=== PATIENT | female | born 1940 | race Caucasian/White ===

== ENCOUNTER 2017-12-19 04:06 | Inpatient (IN) ==
[2017-12-19] MEDS ORDERED: ASPIRIN 325 MG TABLET PO STA (04:20)
[2017-12-19] MEDS ORDERED: MORPHINE 2 MG/1 ML SYRINGE IV STA (04:20)
[2017-12-19] MEDS ORDERED: ONDANSETRON 4 MG/2 ML VIAL IV STA (04:20)
[2017-12-19] MEDS ORDERED: NITROGLYCERIN 2% OINT 1 INCH/GM PACK TOP STA (04:20)
[2017-12-19] MEDS ORDERED: hydrALAZINE 20 MG/1 ML VIAL IV STA (04:21)
[2017-12-19] MEDS ORDERED: ONDANSETRON 4 MG/2 ML VIAL ONE ×3 (04:29→06:36)
[2017-12-19] MEDS ORDERED: NITROGLYCERIN 2% OINT 1 INCH/GM PACK TOP ONE (04:29)
[2017-12-19] MEDS ORDERED: hydrALAZINE 20 MG/1 ML VIAL ONE (04:29)
[2017-12-19] MEDS ORDERED: MORPHINE 10 MG/1 ML VIAL ONE (04:30)
[2017-12-19] MEDS ORDERED: ASPIRIN 325 MG TABLET ONE (04:30)
[2017-12-19] MEDS ORDERED: NITROGLYCERIN DRIP 50 MG/250 ML BOTTLE IV ONE (04:47)
[2017-12-19] MEDS ORDERED: TICAGRELOR 90 MG TABLET ONE (04:50)
[2017-12-19] MEDS ORDERED: HEPARIN 5,000 UNIT/1 ML VIAL ONE (04:51)
[2017-12-19] MEDS ORDERED: TICAGRELOR 90 MG TABLET PO STA (04:52)
[2017-12-19] MEDS ORDERED: NITROGLYCERIN DRIP 50 MG/250 ML BOTTLE IV SCH (04:52)
[2017-12-19] MEDS ORDERED: HEPARIN 5,000 UNIT/1 ML VIAL IV STA (04:53)
[2017-12-19 04:54] LABS: Basophils # 0.1 10*3/uL (0.0-0.2); Basophils % 0.4 % (0.0-0.8); Eosinophils # 0.7 10*3/uL (0.0-0.87); Eosinophils % 5.3 % (0.00-10.9); Hematocrit 44.2 VOL% (35.7-47.0); Hemoglobin 14.1 GM/DL (12.0-16.0); Immature Granulocytes % 0.5 %; Immature Granulocytes Absolute 0.07 #; Lymphocytes # 4.9 10*3/uL (1.4-4.0); Mean Corpuscular HGB Conc 31.9 GM/DL (32-36); Mean Corpuscular Hemoglobin 29 PG (27-34); Mean Corpuscular Volume 91.5 FL (87-102); Monocytes # 0.9 10*3/uL (0.11-0.8); Monocytes % 6.7 % (1.7-12.7); Neutrophils % 51.1 % (38.7-73.9); Platelet Count 231 T/CUMM (130-400); Red Blood Count 4.83 MC/CUMM (3.8-5.5); Red Cell Distribution Width 12.8 % (9.3-17.3); White Blood Count 13.7 T/CUMM (4-12)
[2017-12-19 04:56] LABS: Osmolality,Calculated 281.5 MOS/KG (273-304); Potassium 3.1 MMOL/L (3.5-5.1)
[2017-12-19] MEDS ORDERED: NITROGLYCERIN SL 0.4 MG TABLET SL PRN (06:56)
[2017-12-19] MEDS ORDERED: SODIUM CHLORIDE 0.9% 1,000 ML IV SCH (07:00)
[2017-12-19] MEDS: LOSARTAN 50 MG TABLET PO SCH ×2 (08:13→20:27)
[2017-12-19] MEDS: ASPIRIN EC 81 MG TABLET PO SCH (08:13)
[2017-12-19] MEDS: TICAGRELOR 90 MG TABLET PO SCH ×2 (08:13→20:27)
[2017-12-19] MEDS: MORPHINE 2 MG/1 ML SYRINGE IV PRN ×2 (08:14→12:19)
[2017-12-19] MEDS: ROSUVASTATIN 20 MG TABLET PO SCH (08:14)
[2017-12-19] MEDS: PANTOPRAZOLE 40 MG TABLET PO SCH (08:16)
[2017-12-19] MEDS ORDERED: CARVEDILOL 3.125 MG TABLET PO SCH (09:00)
[2017-12-19 09:18] LABS: CKMB % 11.2 %
[2017-12-19 09:20] LABS: Troponin I Only 4.94 NG/ML (0.00-0.045)
[2017-12-19] MEDS: ONDANSETRON 4 MG/2 ML VIAL IV PRN ×3 (09:41→20:26)
[2017-12-19] MEDS ORDERED: BIVALIRUDIN IV ONE (09:48)
[2017-12-19] MEDS ORDERED: HYDROmorphone 2 MG/1 ML VIAL IV ONE (09:48)
[2017-12-19] MEDS ORDERED: TICAGRELOR 90 MG TABLET PO ONE (09:48)
[2017-12-19] MEDS ORDERED: MIDAZOLAM 2 MG/2 ML VIAL IV ONE (09:48)
[2017-12-19] MEDS: hydrALAZINE 20 MG/1 ML VIAL IV PRN ×2 (14:09→23:19)
[2017-12-19] MEDS: SODIUM CHLORIDE 0.9% 1,000 ML IV SCH ×2 (15:14→23:19)
[2017-12-19 15:46] LABS: CKMB % 14.4 %
[2017-12-19 15:49] LABS: Troponin I Only 34.8 NG/ML (0.00-0.045)
[2017-12-19] MEDS ORDERED: ACETAMINOPHEN 325 MG TABLET PO PRN (16:50)
[2017-12-19] MEDS ORDERED: LABETALOL 20 MG/4 ML SYRINGE IV ONE (17:00)
[2017-12-19] MEDS: ZALEPLON 5 MG CAPSULE PO PRN (20:27)
[2017-12-19] MEDS: CARVEDILOL 6.25 MG TABLET PO SCH (20:27)
[2017-12-19] MEDS: PROMETHAZINE INJ 25 MG in SODIUM CHLORIDE 0.9% 50 ML IV PRN (21:16)
[2017-12-20 01:00] LABS: CKMB % 11.9 %
[2017-12-20] MEDS: PROMETHAZINE INJ 25 MG in SODIUM CHLORIDE 0.9% 50 ML IV PRN (03:49)
[2017-12-20 05:06] LABS: Basophils % 0.2 % (0.0-0.8); Eosinophils % 0.1 % (0.00-10.9); Hematocrit 37.3 VOL% (35.7-47.0); Hemoglobin 12.4 GM/DL (12.0-16.0); Immature Granulocytes % 0.6 %; Lymphocytes # 1.9 10*3/uL (1.4-4.0); Lymphocytes % 11.8 % (21.3-54.2); Mean Corpuscular HGB Conc 33.2 GM/DL (32-36); Mean Corpuscular Hemoglobin 30 PG (27-34); Mean Corpuscular Volume 90.3 FL (87-102); Mean Platelet Volume 12.2 FL (9.6-12.0); Monocytes # 1.3 10*3/uL (0.11-0.8); Monocytes % 7.9 % (1.7-12.7); Neutrophils # 12.9 10*3/uL (1.4-7.4); Neutrophils % 79.4 % (38.7-73.9); Platelet Count 191 T/CUMM (130-400); Red Blood Count 4.13 MC/CUMM (3.8-5.5); Red Cell Distribution Width 13.1 % (9.3-17.3); White Blood Count 16.3 T/CUMM (4-12)
[2017-12-20 05:36] LABS: Calcium 8.6 MG/DL (8.5-10.1); Osmolality,Calculated 275.5 MOS/KG (273-304); Risk Ratio 3.84; VLDL CHOLESTEROL 21.6 MG/DL
[2017-12-20] MEDS ORDERED: POTASSIUM CHLORIDE RIDER 10 MEQ in PREMIX 1 EACH IV PRN (08:22)
[2017-12-20] MEDS ORDERED: MAGNESIUM SULF RIDER 2 GM in PREMIX 1 EACH IV PRN (08:22)
[2017-12-20] MEDS ORDERED: HEPARIN/NACL 0.9% 2 UNITS/ML 2,000 ML IV ONE (08:23)
[2017-12-20] MEDS ORDERED: LIDOCAINE 1% 20 ML VIAL ONE (08:23)
[2017-12-20] MEDS ORDERED: MIDAZOLAM 2 MG/2 ML VIAL ONE (08:24)
[2017-12-20] MEDS ORDERED: HYDROmorphone 2 MG/1 ML VIAL ONE (08:30)
[2017-12-20] MEDS ORDERED: BIVALIRUDIN 250 MG VIAL IV ONE (08:59)
[2017-12-20] MEDS ORDERED: LABETALOL 20 MG/4 ML SYRINGE IV ONE (09:10)
[2017-12-20] MEDS ORDERED: TICAGRELOR 90 MG TABLET ONE (09:21)
[2017-12-20] MEDS: TICAGRELOR 90 MG TABLET PO SCH ×2 (10:15→20:09)
[2017-12-20] MEDS ORDERED: SIMETHICONE CHEW 80 MG TABLET PO PRN (10:18)
[2017-12-20] MEDS ORDERED: MAGNESIUM HYDROXIDE SUSP 30 ML UDCUP PO PRN (10:19)
[2017-12-20] MEDS: ONDANSETRON 4 MG/2 ML VIAL IV PRN (11:25)
[2017-12-20] MEDS: SODIUM CHLORIDE 0.9% 1,000 ML IV SCH ×3 (11:26→23:03)
[2017-12-20] MEDS: CARVEDILOL 6.25 MG TABLET PO SCH ×2 (11:30→20:09)
[2017-12-20] MEDS: ASPIRIN EC 81 MG TABLET PO SCH (11:30)
[2017-12-20] MEDS: LOSARTAN 50 MG TABLET PO SCH ×2 (11:30→20:09)
[2017-12-20] MEDS: PANTOPRAZOLE 40 MG TABLET PO SCH (11:31)
[2017-12-20] MEDS ORDERED: guaiFENesin/DM ER 600-30 MG TABLET PO PRN (13:17)
[2017-12-20] MEDS: ROSUVASTATIN 20 MG TABLET PO SCH ×2 (18:55→20:09)
[2017-12-21] MEDS: hydrALAZINE 20 MG/1 ML VIAL IV PRN (00:07)
[2017-12-21] MEDS: MORPHINE 2 MG/1 ML SYRINGE IV PRN (00:52)
[2017-12-21 09:12] LABS: Calcium 8.4 MG/DL (8.5-10.1); Osmolality,Calculated 273.7 MOS/KG (273-304)
[2017-12-21] MEDS: SODIUM CHLORIDE 0.9% 1,000 ML IV SCH (09:30)
[2017-12-21] MEDS: TICAGRELOR 90 MG TABLET PO SCH ×2 (09:46→20:30)
[2017-12-21] MEDS: PANTOPRAZOLE 40 MG TABLET PO SCH (09:46)
[2017-12-21] MEDS: LOSARTAN 50 MG TABLET PO SCH ×2 (09:46→20:30)
[2017-12-21] MEDS: ASPIRIN EC 81 MG TABLET PO SCH (09:46)
[2017-12-21] MEDS: CARVEDILOL 12.5 MG TABLET PO SCH ×2 (09:46→20:30)
[2017-12-21 10:15] LABS: Basophils % 0.2 % (0.0-0.8); Eosinophils % 0.1 % (0.00-10.9); Hematocrit 35.4 VOL% (35.7-47.0); Hemoglobin 11.3 GM/DL (12.0-16.0); Immature Granulocytes % 0.5 %; Immature Granulocytes Absolute 0.09 #; Lymphocytes # 2.2 10*3/uL (1.4-4.0); Lymphocytes % 12.3 % (21.3-54.2); Mean Corpuscular HGB Conc 31.9 GM/DL (32-36); Mean Corpuscular Hemoglobin 30 PG (27-34); Mean Corpuscular Volume 92.4 FL (87-102); Mean Platelet Volume 11.6 FL (9.6-12.0); Monocytes # 2.1 10*3/uL (0.11-0.8); Monocytes % 11.6 % (1.7-12.7); Neutrophils # 13.3 10*3/uL (1.4-7.4); Neutrophils % 75.3 % (38.7-73.9); Platelet Count 158 T/CUMM (130-400); Red Blood Count 3.83 MC/CUMM (3.8-5.5); Red Cell Distribution Width 13.2 % (9.3-17.3); White Blood Count 17.7 T/CUMM (4-12)
[2017-12-21] MEDS: ENOXAPARIN 40 MG/0.4 ML SYRINGE SUBCUT SCH (11:15)
[2017-12-21] MEDS: ISOSORBIDE MONONITRATE 30 MG TABLET PO SCH (14:38)
[2017-12-21] MEDS ORDERED: FUROSEMIDE 20 MG/2 ML VIAL IV ONE (16:02)
[2017-12-21] MEDS: AMITRIPTYLINE 25 MG TABLET PO SCH (20:30)
[2017-12-21] MEDS: ZALEPLON 5 MG CAPSULE PO PRN (20:30)
[2017-12-21] MEDS: ROSUVASTATIN 20 MG TABLET PO SCH (20:30)
[2017-12-22] MEDS ORDERED: DILTIAZEM 50 MG/10 ML VIAL IV ONE ×2 (01:16→01:30)
[2017-12-22] MEDS ORDERED: DILTIAZEM 100 MG VIAL.ADD IV ONE (01:17)
[2017-12-22] MEDS ORDERED: SODIUM CHLORIDE 0.9% 100 ML IV ONE (01:17)
[2017-12-22] MEDS ORDERED: DILTIAZEM INJ 100 MG in SODIUM CHLORIDE 0.9% 100 ML IV SCH (01:30)
[2017-12-22 04:58] LABS: Basophils % 0.1 % (0.0-0.8); Eosinophils # 0.1 10*3/uL (0.0-0.87); Eosinophils % 0.5 % (0.00-10.9); Hematocrit 32.3 VOL% (35.7-47.0); Hemoglobin 10.3 GM/DL (12.0-16.0); Immature Granulocytes % 0.7 %; Lymphocytes # 2.1 10*3/uL (1.4-4.0); Lymphocytes % 15.4 % (21.3-54.2); Mean Corpuscular HGB Conc 31.9 GM/DL (32-36); Mean Corpuscular Hemoglobin 29 PG (27-34); Mean Corpuscular Volume 91.2 FL (87-102); Mean Platelet Volume 12.1 FL (9.6-12.0); Monocytes # 1.5 10*3/uL (0.11-0.8); Monocytes % 10.8 % (1.7-12.7); Neutrophils # 9.9 10*3/uL (1.4-7.4); Neutrophils % 72.5 % (38.7-73.9); Platelet Count 164 T/CUMM (130-400); Red Blood Count 3.54 MC/CUMM (3.8-5.5); Red Cell Distribution Width 13.2 % (9.3-17.3); White Blood Count 13.6 T/CUMM (4-12)
[2017-12-22 05:23] LABS: Calcium 8.3 MG/DL (8.5-10.1); Osmolality,Calculated 278.5 MOS/KG (273-304); Potassium 3.5 MMOL/L (3.5-5.1)
[2017-12-22 05:36] LABS: Hypochromasia 1+; Microcytosis Slight; Platelet Estimate Adequate
[2017-12-22] MEDS: ASPIRIN EC 81 MG TABLET PO SCH (09:42)
[2017-12-22] MEDS: ENOXAPARIN 40 MG/0.4 ML SYRINGE SUBCUT SCH (09:42)
[2017-12-22] MEDS: CARVEDILOL 12.5 MG TABLET PO SCH (09:42)
[2017-12-22] MEDS: PANTOPRAZOLE 40 MG TABLET PO SCH (09:42)
[2017-12-22] MEDS: ISOSORBIDE MONONITRATE 30 MG TABLET PO SCH (09:42)
[2017-12-22] MEDS: TICAGRELOR 90 MG TABLET PO SCH ×2 (09:42→21:50)
[2017-12-22] MEDS: LOSARTAN 50 MG TABLET PO SCH (09:57)
[2017-12-22] MEDS ORDERED: DIGOXIN 0.5 MG/2 ML AMP IV ONE (10:53)
[2017-12-22] MEDS ORDERED: FUROSEMIDE 40 MG/4 ML VIAL IV ONE (10:58)
[2017-12-22] MEDS: AMIODARONE 200 MG TABLET PO SCH ×2 (12:25→21:50)
[2017-12-22] MEDS: LEVALBUTEROL 0.63 MG/3 ML NEB RESP TX SCH ×2 (13:34→19:29)
[2017-12-22 14:00] LABS: Apearance,Urine Slightly Hazy (Clear); Bacteria,Urine Many /HPF (Few); Bilirubin,Urine Negative (Negative); Blood, Urine Negative (Negative); Glucose,Urine (UA) Negative (Negative); Ketones,Urine 5 mg/dL (Negative); Mucus,Urine Occasional /LPF (Occasional); Nitrite,Urine Negative (Negative); Protein,Urine Negative; RBC,Urine 1 /HPF (0-4); Squamous Epithelial Cell,Urine Occasional /HPF (0-10); Urine Color Yellow (Yellow); Urine Specific Gravity 1.015 (1.001-1.035); WBC,Urine 23 /HPF (0-6)
[2017-12-22] MEDS: LEVOFLOXACIN INJ 500 MG in PREMIX 1 EACH IV SCH (16:31)
[2017-12-22] MEDS: MORPHINE 2 MG/1 ML SYRINGE IV PRN (16:32)
[2017-12-22] MEDS: cefTRIAXone 1,000 MG in SYRINGE 1 EACH IV SCH (18:40)
[2017-12-22] MEDS ORDERED: LOSARTAN 25 MG TABLET PO SCH (21:00)
[2017-12-22] MEDS: AMITRIPTYLINE 25 MG TABLET PO SCH (21:50)
[2017-12-22] MEDS: CARVEDILOL 25 MG TABLET PO SCH (21:50)
[2017-12-22] MEDS: ROSUVASTATIN 20 MG TABLET PO SCH (21:51)
[2017-12-22] MEDS: APIXABAN 5 MG TABLET PO SCH (21:52)
[2017-12-23] MEDS: LEVALBUTEROL 0.63 MG/3 ML NEB RESP TX SCH ×4 (02:14→20:23)
[2017-12-23 06:15] LABS: Basophils % 0.3 % (0.0-0.8); Eosinophils # 0.4 10*3/uL (0.0-0.87); Eosinophils % 4.5 % (0.00-10.9); Hematocrit 28.9 VOL% (35.7-47.0); Hemoglobin 9.4 GM/DL (12.0-16.0); Immature Granulocytes % 0.4 %; Immature Granulocytes Absolute 0.04 #; Lymphocytes # 1.9 10*3/uL (1.4-4.0); Lymphocytes % 19.1 % (21.3-54.2); Mean Corpuscular HGB Conc 32.5 GM/DL (32-36); Mean Corpuscular Hemoglobin 29 PG (27-34); Mean Platelet Volume 11.8 FL (9.6-12.0); Monocytes % 10.7 % (1.7-12.7); Neutrophils # 6.3 10*3/uL (1.4-7.4); Platelet Count 152 T/CUMM (130-400); Red Blood Count 3.21 MC/CUMM (3.8-5.5); Red Cell Distribution Width 13.1 % (9.3-17.3); White Blood Count 9.8 T/CUMM (4-12)
[2017-12-23 06:47] LABS: Band Neutrophils 1 % (0-10); Eosinophils 4 % (0-10); Giant Platelets Few; Hypochromasia 1+; Lymphocytes 17 % (20-55); Microcytosis Slight; Ovalocytes Slight; Platelet Estimate Normal; Segmented Neutrophils 68 % (50-85); Total Cells Counted 100
[2017-12-23 07:05] LABS: Calcium 8.2 MG/DL (8.5-10.1); Osmolality,Calculated 284.3 MOS/KG (273-304); Potassium 3.2 MMOL/L (3.5-5.1)
[2017-12-23] MEDS: POTASSIUM CHLORIDE 20 MEQ TABLET PO PRN ×3 (09:01→15:14)
[2017-12-23] MEDS: FUROSEMIDE 40 MG/4 ML VIAL IV SCH (09:01)
[2017-12-23] MEDS: LOSARTAN 25 MG TABLET PO SCH (09:01)
[2017-12-23] MEDS: APIXABAN 5 MG TABLET PO SCH ×2 (09:01→22:21)
[2017-12-23] MEDS: ASPIRIN EC 81 MG TABLET PO SCH (09:02)
[2017-12-23] MEDS: AMIODARONE 200 MG TABLET PO SCH ×2 (09:02→22:22)
[2017-12-23] MEDS: ISOSORBIDE MONONITRATE 30 MG TABLET PO SCH (09:02)
[2017-12-23] MEDS: PANTOPRAZOLE 40 MG TABLET PO SCH (09:02)
[2017-12-23] MEDS: TICAGRELOR 90 MG TABLET PO SCH ×2 (09:02→22:21)
[2017-12-23] MEDS: CARVEDILOL 25 MG TABLET PO SCH ×2 (09:02→22:21)
[2017-12-23] MEDS: LEVOFLOXACIN INJ 500 MG in PREMIX 1 EACH IV SCH (15:33)
[2017-12-23] MEDS: cefTRIAXone 1,000 MG in SYRINGE 1 EACH IV SCH (18:45)
[2017-12-23] MEDS: AMITRIPTYLINE 25 MG TABLET PO SCH (22:21)
[2017-12-23] MEDS: ROSUVASTATIN 20 MG TABLET PO SCH (22:21)
[2017-12-24] MEDS: LEVALBUTEROL 0.63 MG/3 ML NEB RESP TX SCH ×4 (01:30→18:58)
[2017-12-24 05:15] LABS: Basophils % 0.2 % (0.0-0.8); Eosinophils # 0.6 10*3/uL (0.0-0.87); Eosinophils % 6.2 % (0.00-10.9); Hematocrit 29.7 VOL% (35.7-47.0); Hemoglobin 9.6 GM/DL (12.0-16.0); Immature Granulocytes % 0.6 %; Immature Granulocytes Absolute 0.06 #; Lymphocytes # 2.1 10*3/uL (1.4-4.0); Mean Corpuscular HGB Conc 32.3 GM/DL (32-36); Mean Corpuscular Hemoglobin 29 PG (27-34); Mean Corpuscular Volume 90.5 FL (87-102); Mean Platelet Volume 11.9 FL (9.6-12.0); Monocytes # 1.2 10*3/uL (0.11-0.8); Monocytes % 12.2 % (1.7-12.7); Neutrophils % 59.8 % (38.7-73.9); Platelet Count 171 T/CUMM (130-400); Red Blood Count 3.28 MC/CUMM (3.8-5.5); Red Cell Distribution Width 13.2 % (9.3-17.3)
[2017-12-24 05:49] LABS: Calcium 8.3 MG/DL (8.5-10.1); Osmolality,Calculated 285.1 MOS/KG (273-304); Potassium 4.1 MMOL/L (3.5-5.1)
[2017-12-24] MEDS: ISOSORBIDE MONONITRATE 30 MG TABLET PO SCH (09:37)
[2017-12-24] MEDS: LOSARTAN 25 MG TABLET PO SCH (09:37)
[2017-12-24] MEDS: CARVEDILOL 25 MG TABLET PO SCH ×2 (09:37→21:12)
[2017-12-24] MEDS: APIXABAN 5 MG TABLET PO SCH ×2 (09:38→21:12)
[2017-12-24] MEDS: TICAGRELOR 90 MG TABLET PO SCH ×2 (09:38→21:11)
[2017-12-24] MEDS: PANTOPRAZOLE 40 MG TABLET PO SCH (09:38)
[2017-12-24] MEDS: ASPIRIN EC 81 MG TABLET PO SCH (09:38)
[2017-12-24] MEDS: AMIODARONE 200 MG TABLET PO SCH ×2 (09:41→21:11)
[2017-12-24] MEDS: FUROSEMIDE 40 MG/4 ML VIAL IV SCH (09:46)
[2017-12-24] MEDS: METOPROLOL TARTRATE 5 MG/5 ML VIAL IV SCH ×3 (12:44→15:45)
[2017-12-24] MEDS: LEVOFLOXACIN INJ 500 MG in PREMIX 1 EACH IV SCH (16:21)
[2017-12-24] MEDS: cefTRIAXone 1,000 MG in SYRINGE 1 EACH IV SCH (18:43)
[2017-12-24] MEDS: ROSUVASTATIN 20 MG TABLET PO SCH (21:11)
[2017-12-24] MEDS: AMITRIPTYLINE 25 MG TABLET PO SCH (21:12)
[2017-12-25] MEDS: LEVALBUTEROL 0.63 MG/3 ML NEB RESP TX SCH ×4 (00:17→19:41)
[2017-12-25 05:22] LABS: Basophils % 0.3 % (0.0-0.8); Eosinophils # 0.8 10*3/uL (0.0-0.87); Eosinophils % 7.2 % (0.00-10.9); Hematocrit 31.5 VOL% (35.7-47.0); Hemoglobin 10.4 GM/DL (12.0-16.0); Immature Granulocytes % 0.7 %; Immature Granulocytes Absolute 0.08 #; Lymphocytes # 2.5 10*3/uL (1.4-4.0); Lymphocytes % 21.5 % (21.3-54.2); Mean Corpuscular Hemoglobin 30 PG (27-34); Mean Corpuscular Volume 89.7 FL (87-102); Mean Platelet Volume 11.6 FL (9.6-12.0); Monocytes # 1.6 10*3/uL (0.11-0.8); Monocytes % 13.8 % (1.7-12.7); Neutrophils # 6.6 10*3/uL (1.4-7.4); Neutrophils % 56.5 % (38.7-73.9); Platelet Count 211 T/CUMM (130-400); Red Blood Count 3.51 MC/CUMM (3.8-5.5); White Blood Count 11.6 T/CUMM (4-12)
[2017-12-25 05:44] LABS: Calcium 8.6 MG/DL (8.5-10.1); Osmolality,Calculated 279.5 MOS/KG (273-304); Potassium 3.7 MMOL/L (3.5-5.1)
[2017-12-25] MEDS: FUROSEMIDE 40 MG/4 ML VIAL IV SCH (08:51)
[2017-12-25] MEDS: ASPIRIN EC 81 MG TABLET PO SCH (08:51)
[2017-12-25] MEDS: APIXABAN 5 MG TABLET PO SCH ×2 (08:51→21:27)
[2017-12-25] MEDS: TICAGRELOR 90 MG TABLET PO SCH ×2 (08:52→21:33)
[2017-12-25] MEDS: CARVEDILOL 25 MG TABLET PO SCH ×2 (08:52→21:33)
[2017-12-25] MEDS: LOSARTAN 25 MG TABLET PO SCH ×2 (08:52→21:27)
[2017-12-25] MEDS: PANTOPRAZOLE 40 MG TABLET PO SCH (08:52)
[2017-12-25] MEDS: ISOSORBIDE MONONITRATE 30 MG TABLET PO SCH (08:52)
[2017-12-25] MEDS: AMIODARONE 200 MG TABLET PO SCH ×2 (08:52→21:30)
[2017-12-25] MEDS: CEFDINIR 300 MG CAPSULE PO SCH ×2 (11:14→21:26)
[2017-12-25] MEDS: ROSUVASTATIN 20 MG TABLET PO SCH (21:29)
[2017-12-25] MEDS: AMITRIPTYLINE 25 MG TABLET PO SCH (21:33)
[2017-12-26] MEDS: LEVALBUTEROL 0.63 MG/3 ML NEB RESP TX SCH ×4 (01:06→19:51)
[2017-12-26 05:34] LABS: Basophils % 0.3 % (0.0-0.8); Eosinophils # 0.7 10*3/uL (0.0-0.87); Eosinophils % 6.1 % (0.00-10.9); Hematocrit 31.3 VOL% (35.7-47.0); Hemoglobin 10.3 GM/DL (12.0-16.0); Immature Granulocytes % 0.5 %; Immature Granulocytes Absolute 0.06 #; Lymphocytes # 2.8 10*3/uL (1.4-4.0); Lymphocytes % 22.9 % (21.3-54.2); Mean Corpuscular HGB Conc 32.9 GM/DL (32-36); Mean Corpuscular Hemoglobin 29 PG (27-34); Mean Corpuscular Volume 88.7 FL (87-102); Mean Platelet Volume 11.5 FL (9.6-12.0); Monocytes # 1.7 10*3/uL (0.11-0.8); Monocytes % 14.2 % (1.7-12.7); Neutrophils # 6.8 10*3/uL (1.4-7.4); Platelet Count 235 T/CUMM (130-400); Red Blood Count 3.53 MC/CUMM (3.8-5.5); Red Cell Distribution Width 12.9 % (9.3-17.3); White Blood Count 12.1 T/CUMM (4-12)
[2017-12-26 06:05] LABS: Calcium 8.8 MG/DL (8.5-10.1); Osmolality,Calculated 278.5 MOS/KG (273-304); Potassium 3.7 MMOL/L (3.5-5.1)
[2017-12-26] MEDS: TICAGRELOR 90 MG TABLET PO SCH ×2 (08:58→21:16)
[2017-12-26] MEDS: CEFDINIR 300 MG CAPSULE PO SCH ×2 (08:58→21:10)
[2017-12-26] MEDS: LOSARTAN 25 MG TABLET PO SCH ×2 (08:58→21:12)
[2017-12-26] MEDS: APIXABAN 5 MG TABLET PO SCH ×2 (08:58→21:11)
[2017-12-26] MEDS: ISOSORBIDE MONONITRATE 30 MG TABLET PO SCH (08:58)
[2017-12-26] MEDS: CARVEDILOL 25 MG TABLET PO SCH ×2 (08:58→21:12)
[2017-12-26] MEDS: ASPIRIN EC 81 MG TABLET PO SCH (08:59)
[2017-12-26] MEDS: PANTOPRAZOLE 40 MG TABLET PO SCH (08:59)
[2017-12-26] MEDS: AMIODARONE 200 MG TABLET PO SCH ×2 (09:00→21:12)
[2017-12-26] MEDS: FUROSEMIDE 40 MG/4 ML VIAL IV SCH (09:04)
[2017-12-26] MEDS: ROSUVASTATIN 20 MG TABLET PO SCH (21:11)
[2017-12-26] MEDS: AMITRIPTYLINE 25 MG TABLET PO SCH (21:12)
[2017-12-27] MEDS: LEVALBUTEROL 0.63 MG/3 ML NEB RESP TX SCH ×2 (01:48→07:19)
[2017-12-27 04:57] LABS: Basophils # 0.1 10*3/uL (0.0-0.2); Basophils % 0.4 % (0.0-0.8); Eosinophils # 0.8 10*3/uL (0.0-0.87); Eosinophils % 5.8 % (0.00-10.9); Hematocrit 33.1 VOL% (35.7-47.0); Hemoglobin 10.7 GM/DL (12.0-16.0); Immature Granulocytes % 0.5 %; Immature Granulocytes Absolute 0.07 #; Lymphocytes # 2.9 10*3/uL (1.4-4.0); Lymphocytes % 21.6 % (21.3-54.2); Mean Corpuscular HGB Conc 32.3 GM/DL (32-36); Mean Corpuscular Hemoglobin 29 PG (27-34); Mean Corpuscular Volume 89.2 FL (87-102); Mean Platelet Volume 11.2 FL (9.6-12.0); Monocytes # 1.8 10*3/uL (0.11-0.8); Monocytes % 13.5 % (1.7-12.7); Neutrophils # 7.8 10*3/uL (1.4-7.4); Neutrophils % 58.2 % (38.7-73.9); Platelet Count 272 T/CUMM (130-400); Red Blood Count 3.71 MC/CUMM (3.8-5.5); White Blood Count 13.4 T/CUMM (4-12)
[2017-12-27 05:24] LABS: Calcium 8.4 MG/DL (8.5-10.1); Osmolality,Calculated 281.4 MOS/KG (273-304); Potassium 3.7 MMOL/L (3.5-5.1)
[2017-12-27 08:42] VITALS: BP 108/58
[2017-12-27] MEDS: FUROSEMIDE 40 MG/4 ML VIAL IV SCH (09:08)
[2017-12-27] MEDS: LOSARTAN 25 MG TABLET PO SCH (09:09)
[2017-12-27] MEDS: CEFDINIR 300 MG CAPSULE PO SCH (09:09)
[2017-12-27] MEDS: ASPIRIN EC 81 MG TABLET PO SCH (09:09)
[2017-12-27] MEDS: CARVEDILOL 25 MG TABLET PO SCH (09:09)
[2017-12-27] MEDS: ISOSORBIDE MONONITRATE 30 MG TABLET PO SCH (09:10)
[2017-12-27] MEDS: AMIODARONE 200 MG TABLET PO SCH (09:10)
[2017-12-27] MEDS: TICAGRELOR 90 MG TABLET PO SCH (09:10)
[2017-12-27] MEDS: PANTOPRAZOLE 40 MG TABLET PO SCH (09:10)
[2017-12-27] MEDS: APIXABAN 5 MG TABLET PO SCH (09:10)
[2017-12-27] MEDS ORDERED: AMIODARONE 200 MG TABLET PO ONE (09:43)
[2017-12-28] MEDS ORDERED: FUROSEMIDE 40 MG TABLET PO SCH (09:00)
== END 2017-12-27 12:19 | disposition home or self-care (01) | DRG 246 ==
LOC: N.ED 04:06 → N.ICU 05:12 → SUATTDRO 06:24 → N.CL 06:27 → N.ICU 06:28 → N.TELES 12-23 19:47
PROVIDERS: ADMIT Internal Medicine Cardiovascular Disease; ATTEND Internal Medicine Cardiovascular Disease
PROC: CLCCHCL (ICD-10-PCS; 2017-12-19 05:45)

== ENCOUNTER 2018-01-03 12:29 | Inpatient (IN) ==
[2018-01-03] MEDS ORDERED: ACETAMINOPHEN 325 MG TABLET PO PRN (12:34)
[2018-01-03] MEDS ORDERED: ONDANSETRON 4 MG/2 ML VIAL IV PRN (12:34)
[2018-01-03] MEDS ORDERED: DOCUSATE SODIUM 100 MG CAPSULE PO PRN (12:46)
[2018-01-03] MEDS ORDERED: SODIUM CHLORIDE 0.9% 1,000 ML IV SCH (13:00)
[2018-01-03 13:49] LABS: Basophils # 0.1 10*3/uL (0.0-0.2); Basophils % 0.3 % (0.0-0.8); Eosinophils # 0.3 10*3/uL (0.0-0.87); Eosinophils % 1.5 % (0.00-10.9); Hematocrit 35.1 VOL% (35.7-47.0); Immature Granulocytes % 0.9 %; Immature Granulocytes Absolute 0.17 #; Lymphocytes % 10.1 % (21.3-54.2); Mean Corpuscular HGB Conc 31.3 GM/DL (32-36); Mean Corpuscular Hemoglobin 29 PG (27-34); Mean Corpuscular Volume 91.6 FL (87-102); Mean Platelet Volume 10.9 FL (9.6-12.0); Monocytes # 2.3 10*3/uL (0.11-0.8); Monocytes % 11.4 % (1.7-12.7); Neutrophils # 14.9 10*3/uL (1.4-7.4); Neutrophils % 75.8 % (38.7-73.9); Platelet Count 442 T/CUMM (130-400); Red Blood Count 3.83 MC/CUMM (3.8-5.5); Red Cell Distribution Width 13.4 % (9.3-17.3); White Blood Count 19.7 T/CUMM (4-12)
[2018-01-03 14:13] LABS: Albumin 2.9 G/DL (3.4-5.0); Bilirubin,Total 0.6 MG/DL (0.2-1.0); Calcium 9.3 MG/DL (8.5-10.1); Osmolality,Calculated 275.2 MOS/KG (273-304); Potassium 4.7 MMOL/L (3.5-5.1); Total Protein 6.8 G/DL (6.4-8.3)
[2018-01-03 16:48] LABS: Apearance,Urine CLEAR (Clear); Bacteria,Urine Occasional /HPF (Few); Bilirubin,Urine Negative (Negative); Blood, Urine Small mg/dL (Negative); Glucose,Urine (UA) Negative (Negative); Ketones,Urine Negative (Negative); Mucus,Urine Occasional /LPF (Occasional); Nitrite,Urine Negative (Negative); Protein,Urine Negative; RBC,Urine 1 /HPF (0-4); Squamous Epithelial Cell,Urine Occasional /HPF (0-10); Urine Color Straw (Yellow); Urine Specific Gravity 1.002 (1.001-1.035); Urine Urobilinogen < 2.0 EU/DL (0.2-1.0); WBC,Urine 2 /HPF (0-6)
[2018-01-03] MEDS: LEVOFLOXACIN INJ 500 MG in PREMIX 1 EACH IV SCH (17:10)
[2018-01-03] MEDS ORDERED: NITROGLYCERIN SL 0.4 MG TABLET SL PRN (17:43)
[2018-01-03] MEDS: SODIUM CHLORIDE 0.45% 1,000 ML IV SCH (18:44)
[2018-01-03] MEDS: AMITRIPTYLINE 25 MG TABLET PO SCH (20:57)
[2018-01-03] MEDS ORDERED: CARVEDILOL 25 MG TABLET PO SCH (21:00)
[2018-01-03] MEDS ORDERED: LOSARTAN 25 MG TABLET PO SCH (21:00)
[2018-01-03] MEDS ORDERED: DOCUSATE SODIUM 100 MG CAPSULE PO SCH (21:00)
[2018-01-03] MEDS: TICAGRELOR 90 MG TABLET PO SCH (21:02)
[2018-01-03] MEDS: CARVEDILOL 12.5 MG TABLET PO SCH (21:02)
[2018-01-03] MEDS: ROSUVASTATIN 20 MG TABLET PO SCH (21:02)
[2018-01-04 03:25] LABS: Basophils % 0.2 % (0.0-0.8); Eosinophils # 0.7 10*3/uL (0.0-0.87); Eosinophils % 4.1 % (0.00-10.9); Hematocrit 33.3 VOL% (35.7-47.0); Immature Granulocytes % 0.9 %; Immature Granulocytes Absolute 0.14 #; Lymphocytes # 2.2 10*3/uL (1.4-4.0); Lymphocytes % 13.7 % (21.3-54.2); Mean Corpuscular Hemoglobin 29 PG (27-34); Mean Corpuscular Volume 87.4 FL (87-102); Mean Platelet Volume 10.9 FL (9.6-12.0); Monocytes % 12.4 % (1.7-12.7); Neutrophils % 68.7 % (38.7-73.9); Platelet Count 389 T/CUMM (130-400); Red Blood Count 3.81 MC/CUMM (3.8-5.5); Red Cell Distribution Width 13.3 % (9.3-17.3); White Blood Count 16.1 T/CUMM (4-12)
[2018-01-04 04:03] LABS: Osmolality,Calculated 275.1 MOS/KG (273-304); Potassium 4.4 MMOL/L (3.5-5.1)
[2018-01-04] MEDS ORDERED: LOSARTAN 25 MG TABLET PO SCH (09:00)
[2018-01-04] MEDS: PANTOPRAZOLE 40 MG TABLET PO SCH (09:10)
[2018-01-04] MEDS: FUROSEMIDE 40 MG TABLET PO SCH ×2 (09:10→09:13)
[2018-01-04] MEDS: ISOSORBIDE MONONITRATE 30 MG TABLET PO SCH (09:10)
[2018-01-04] MEDS: ASPIRIN EC 81 MG TABLET PO SCH (09:10)
[2018-01-04] MEDS: CARVEDILOL 12.5 MG TABLET PO SCH ×2 (09:10→16:45)
[2018-01-04] MEDS: POTASSIUM CHLORIDE 20 MEQ TABLET PO SCH (09:10)
[2018-01-04] MEDS: TICAGRELOR 90 MG TABLET PO SCH ×2 (09:10→21:25)
[2018-01-04] MEDS: SODIUM CHLORIDE 0.45% 1,000 ML IV SCH ×2 (09:13→23:35)
[2018-01-04] MEDS: LEVOFLOXACIN INJ 500 MG in PREMIX 1 EACH IV SCH (13:15)
[2018-01-04] MEDS: AMITRIPTYLINE 25 MG TABLET PO SCH (21:25)
[2018-01-04] MEDS: ROSUVASTATIN 20 MG TABLET PO SCH (21:25)
[2018-01-05 05:45] LABS: Basophils # 0.1 10*3/uL (0.0-0.2); Basophils % 0.4 % (0.0-0.8); Eosinophils # 0.6 10*3/uL (0.0-0.87); Eosinophils % 4.5 % (0.00-10.9); Hematocrit 34.4 VOL% (35.7-47.0); Hemoglobin 11.3 GM/DL (12.0-16.0); Immature Granulocytes % 0.6 %; Immature Granulocytes Absolute 0.08 #; Lymphocytes # 2.1 10*3/uL (1.4-4.0); Lymphocytes % 16.6 % (21.3-54.2); Mean Corpuscular HGB Conc 32.8 GM/DL (32-36); Mean Corpuscular Hemoglobin 29 PG (27-34); Mean Corpuscular Volume 88.2 FL (87-102); Monocytes # 1.7 10*3/uL (0.11-0.8); Monocytes % 12.9 % (1.7-12.7); Neutrophils # 8.4 10*3/uL (1.4-7.4); Platelet Count 448 T/CUMM (130-400); Red Cell Distribution Width 13.5 % (9.3-17.3); White Blood Count 12.9 T/CUMM (4-12)
[2018-01-05 06:19] LABS: Osmolality,Calculated 276.8 MOS/KG (273-304); Potassium 4.5 MMOL/L (3.5-5.1)
[2018-01-05] MEDS: CARVEDILOL 12.5 MG TABLET PO SCH ×2 (08:31→16:18)
[2018-01-05] MEDS: POTASSIUM CHLORIDE 20 MEQ TABLET PO SCH (08:31)
[2018-01-05] MEDS: TICAGRELOR 90 MG TABLET PO SCH ×2 (08:31→22:20)
[2018-01-05] MEDS: FUROSEMIDE 40 MG TABLET PO SCH (08:31)
[2018-01-05] MEDS: PANTOPRAZOLE 40 MG TABLET PO SCH (08:31)
[2018-01-05] MEDS: ASPIRIN EC 81 MG TABLET PO SCH (08:31)
[2018-01-05] MEDS: ISOSORBIDE MONONITRATE 30 MG TABLET PO SCH (08:31)
[2018-01-05] MEDS: SODIUM CHLORIDE 0.45% 1,000 ML IV SCH (13:00)
[2018-01-05] MEDS: LEVOFLOXACIN INJ 500 MG in PREMIX 1 EACH IV SCH (13:00)
[2018-01-05] MEDS ORDERED: FLUCONAZOLE 150 MG TABLET PO ONE (20:45)
[2018-01-05] MEDS: ROSUVASTATIN 20 MG TABLET PO SCH (22:19)
[2018-01-05] MEDS: AMITRIPTYLINE 25 MG TABLET PO SCH (22:20)
[2018-01-06 05:55] LABS: Basophils # 0.1 10*3/uL (0.0-0.2); Basophils % 0.5 % (0.0-0.8); Eosinophils # 0.9 10*3/uL (0.0-0.87); Eosinophils % 7.3 % (0.00-10.9); Hematocrit 35.8 VOL% (35.7-47.0); Hemoglobin 11.6 GM/DL (12.0-16.0); Immature Granulocytes % 0.7 %; Immature Granulocytes Absolute 0.08 #; Lymphocytes # 3.4 10*3/uL (1.4-4.0); Lymphocytes % 28.4 % (21.3-54.2); Mean Corpuscular HGB Conc 32.4 GM/DL (32-36); Mean Corpuscular Hemoglobin 29 PG (27-34); Mean Corpuscular Volume 88.6 FL (87-102); Mean Platelet Volume 11.1 FL (9.6-12.0); Monocytes # 1.5 10*3/uL (0.11-0.8); Monocytes % 12.4 % (1.7-12.7); Neutrophils % 50.7 % (38.7-73.9); Platelet Count 466 T/CUMM (130-400); Red Blood Count 4.04 MC/CUMM (3.8-5.5); Red Cell Distribution Width 13.3 % (9.3-17.3); White Blood Count 11.9 T/CUMM (4-12)
[2018-01-06 06:23] LABS: Calcium 9.4 MG/DL (8.5-10.1); Osmolality,Calculated 276.8 MOS/KG (273-304); Potassium 4.1 MMOL/L (3.5-5.1)
[2018-01-06 08:26] VITALS: BP 162/71
[2018-01-06] MEDS: PANTOPRAZOLE 40 MG TABLET PO SCH (08:40)
[2018-01-06] MEDS: ISOSORBIDE MONONITRATE 30 MG TABLET PO SCH (08:40)
[2018-01-06] MEDS: POTASSIUM CHLORIDE 20 MEQ TABLET PO SCH (08:40)
[2018-01-06] MEDS: TICAGRELOR 90 MG TABLET PO SCH (08:40)
[2018-01-06] MEDS: ASPIRIN EC 81 MG TABLET PO SCH (08:40)
[2018-01-06] MEDS: FUROSEMIDE 40 MG TABLET PO SCH (08:41)
[2018-01-06] MEDS: CARVEDILOL 12.5 MG TABLET PO SCH (08:41)
== END 2018-01-06 11:52 | disposition home health service (06) | DRG 371 ==
LOC: N.TELEN
PROVIDERS: ADMIT Family Medicine; ATTEND Family Medicine

== ENCOUNTER 2021-05-29 02:00 | Inpatient (IN) ==
[2021-05-29] MEDS ORDERED: SODIUM CHLORIDE 0.9% 1,000 ML IV STA ×2 (02:44→05:40)
[2021-05-29] MEDS ORDERED: ONDANSETRON 4 MG/2 ML VIAL IV STA (02:44)
[2021-05-29 03:48] LABS: Basophils # 0.1 10*3/uL (0.0-0.2); Basophils % 0.5 % (0.0-0.8); Eosinophils # 0.6 10*3/uL (0.0-0.87); Eosinophils % 5.2 % (0.00-10.9); Hematocrit 31.4 VOL% (35.7-47.0); Hemoglobin 10.1 GM/DL (12.0-16.0); Immature Granulocytes % 0.5 %; Immature Granulocytes Absolute 0.06 #; Lymphocytes # 2.8 10*3/uL (1.4-4.0); Lymphocytes % 22.3 % (21.3-54.2); Mean Corpuscular HGB Conc 32.2 GM/DL (32-36); Mean Corpuscular Volume 93.5 FL (87-102); Mean Platelet Volume 10.8 FL (9.6-12.0); Neutrophils % 62.5 % (38.7-73.9); Platelet Count 231 T/CUMM (130-400); Red Blood Count 3.36 MC/CUMM (3.8-5.5); Red Cell Distribution Width 15.1 % (9.3-17.3); White Blood Count 12.4 T/CUMM (4-12)
[2021-05-29 04:07] LABS: Alanine Aminotransferase 33 U/L (13-56); Albumin 3.5 G/DL (3.4-5.0); Alkaline Phosphatase 67 U/L (45-117); Amylase 79 U/L (25-115); Aspartate Amino Transferase 27 U/L (0-37); Bilirubin,Total < 0.39 MG/DL (0.20-1.00); Blood Urea Nitrogen 39 MG/DL (7-18); Calcium 9.7 MG/DL (8.5-10.1); Carbon Dioxide 25 MMOL/L (21-32); Estimated Glom Filtration Rate 15 ML/MIN; Glucose 116 MG/DL (74-106); Osmolality,Calculated 286.5 MOS/KG (273-304); Sodium 139 MMOL/L (136-145); Total Protein 6.8 G/DL (6.4-8.2)
[2021-05-29 05:21] LABS: Bilirubin,Urine Negative (Negative); Blood, Urine Small mg/dL (Negative); Glucose,Urine (UA) Negative (Negative); Hyaline Casts,Urine 4 /LPF (0-3); Ketones,Urine Negative (Negative); Mucus,Urine Occasional /LPF (Occasional); Nitrite,Urine Negative (Negative); Protein,Urine 30 MG/DL; RBC,Urine 6 /HPF (0-4); Squamous Epithelial Cell,Urine Occasional /HPF (0-10); Urine Appearance CLEAR (Clear); Urine Color Yellow (Yellow); Urine Specific Gravity 1.009 (1.001-1.035); Urine Urobilinogen < 2.0 EU/DL (0.2-1.0)
[2021-05-29] MEDS ORDERED: cefTRIAXone 1,000 MG in SODIUM CHLORIDE 0.9% 100 ML IV STA (05:28)
[2021-05-29] MEDS ORDERED: ACETAMINOPHEN 325 MG TABLET PO PRN (07:19)
[2021-05-29] MEDS ORDERED: NITROGLYCERIN SL 0.4 MG TABLET SL PRN (07:19)
[2021-05-29] MEDS: ONDANSETRON 4 MG/2 ML VIAL IV PRN (07:41)
[2021-05-29] MEDS ORDERED: FUROSEMIDE 40 MG TABLET PO SCH (09:00)
[2021-05-29] MEDS: APIXABAN 2.5 MG TABLET PO SCH ×2 (09:12→20:57)
[2021-05-29] MEDS: ROSUVASTATIN 20 MG TABLET PO SCH (09:12)
[2021-05-29] MEDS: POTASSIUM CHLORIDE 20 MEQ TABLET PO SCH (09:12)
[2021-05-29] MEDS: ASPIRIN EC 81 MG TABLET PO SCH (09:12)
[2021-05-29] MEDS: DOCUSATE SODIUM 100 MG CAPSULE PO SCH ×2 (09:12→20:57)
[2021-05-29] MEDS: EZETIMIBE 10 MG TABLET PO SCH (09:12)
[2021-05-29] MEDS: carvediloL 6.25 MG TABLET PO SCH (09:12)
[2021-05-29] MEDS: LOSARTAN 25 MG TABLET PO SCH ×2 (09:13→20:57)
[2021-05-29] MEDS: MULTIVITAMIN (CENTRUM) TABLET PO SCH (09:13)
[2021-05-29] MEDS: SODIUM CHLORIDE 0.9% 1,000 ML IV SCH (09:13)
[2021-05-29] MEDS: FUROSEMIDE 20 MG TABLET PO SCH (10:43)
[2021-05-29] MEDS: traMADol 50 MG TABLET PO PRN (20:56)
[2021-05-30] MEDS: SODIUM CHLORIDE 0.9% 1,000 ML IV SCH ×3 (02:09→16:26)
[2021-05-30 04:59] LABS: Basophils # 0.1 10*3/uL (0.0-0.2); Basophils % 0.4 % (0.0-0.8); Eosinophils # 1.1 10*3/uL (0.0-0.87); Eosinophils % 8.1 % (0.00-10.9); Hematocrit 27.1 VOL% (35.7-47.0); Hemoglobin 8.5 GM/DL (12.0-16.0); Immature Granulocytes % 0.4 %; Immature Granulocytes Absolute 0.06 #; Lymphocytes # 4.1 10*3/uL (1.4-4.0); Lymphocytes % 30.3 % (21.3-54.2); Mean Corpuscular HGB Conc 31.4 GM/DL (32-36); Mean Corpuscular Volume 96.1 FL (87-102); Mean Platelet Volume 10.4 FL (9.6-12.0); Monocytes % 11.2 % (1.7-12.7); Neutrophils % 49.6 % (38.7-73.9); Platelet Count 182 T/CUMM (130-400); Red Blood Count 2.82 MC/CUMM (3.8-5.5); Red Cell Distribution Width 15.2 % (9.3-17.3); White Blood Count 13.4 T/CUMM (4-12)
[2021-05-30 05:27] LABS: Alanine Aminotransferase 27 U/L (13-56); Albumin 2.7 G/DL (3.4-5.0); Alkaline Phosphatase 52 U/L (45-117); Aspartate Amino Transferase 21 U/L (0-37); Bilirubin,Total < 0.39 MG/DL (0.20-1.00); Blood Urea Nitrogen 34 MG/DL (7-18); Calcium 8.2 MG/DL (8.5-10.1); Carbon Dioxide 24 MMOL/L (21-32); Estimated Glom Filtration Rate 17 ML/MIN; Glucose 92 MG/DL (74-106); Potassium 4.9 MMOL/L (3.5-5.1); Sodium 143 MMOL/L (136-145); Total Protein 5.6 G/DL (6.4-8.2)
[2021-05-30] MEDS: ONDANSETRON 4 MG/2 ML VIAL IV PRN ×2 (05:49→17:23)
[2021-05-30] MEDS ORDERED: PANTOPRAZOLE 40 MG TABLET PO SCH (06:30)
[2021-05-30] MEDS ORDERED: ONDANSETRON 4 MG/2 ML VIAL IV ONE (08:45)
[2021-05-30] MEDS: ASPIRIN EC 81 MG TABLET PO SCH (09:51)
[2021-05-30] MEDS: cefTRIAXone 1,000 MG in SODIUM CHLORIDE 0.9% 100 ML IV SCH (10:15)
[2021-05-30] MEDS: cloNIDine 0.1 MG TABLET PO SCH ×2 (11:39→21:02)
[2021-05-30] MEDS: MULTIVITAMIN (CENTRUM) TABLET PO SCH (11:39)
[2021-05-30] MEDS: POTASSIUM CHLORIDE 20 MEQ TABLET PO SCH (11:39)
[2021-05-30] MEDS: carvediloL 6.25 MG TABLET PO SCH ×2 (11:39→21:03)
[2021-05-30] MEDS: DOCUSATE SODIUM 100 MG CAPSULE PO SCH ×2 (11:39→21:03)
[2021-05-30] MEDS: ROSUVASTATIN 20 MG TABLET PO SCH (11:39)
[2021-05-30] MEDS: LOSARTAN 25 MG TABLET PO SCH ×2 (11:39→21:02)
[2021-05-30] MEDS: FUROSEMIDE 20 MG TABLET PO SCH (11:40)
[2021-05-30] MEDS: EZETIMIBE 10 MG TABLET PO SCH (11:40)
[2021-05-30] MEDS: GABAPENTIN 100 MG CAPSULE PO SCH ×2 (11:40→21:03)
[2021-05-30] MEDS: PROCHLORPERAZINE 10 MG/2 ML VIAL IV PRN (18:01)
[2021-05-31 05:15] LABS: Basophils # 0.1 10*3/uL (0.0-0.2); Basophils % 0.4 % (0.0-0.8); Eosinophils # 0.6 10*3/uL (0.0-0.87); Eosinophils % 5.3 % (0.00-10.9); Hematocrit 25.1 VOL% (35.7-47.0); Hemoglobin 8.1 GM/DL (12.0-16.0); Immature Granulocytes % 0.4 %; Immature Granulocytes Absolute 0.05 #; Lymphocytes # 3.3 10*3/uL (1.4-4.0); Lymphocytes % 27.6 % (21.3-54.2); Mean Corpuscular HGB Conc 32.3 GM/DL (32-36); Mean Corpuscular Volume 96.2 FL (87-102); Mean Platelet Volume 10.9 FL (9.6-12.0); Monocytes % 9.3 % (1.7-12.7); Platelet Count 161 T/CUMM (130-400); Red Blood Count 2.61 MC/CUMM (3.8-5.5); Red Cell Distribution Width 15.1 % (9.3-17.3); White Blood Count 11.8 T/CUMM (4-12)
[2021-05-31 05:45] LABS: Calcium 8.3 MG/DL (8.5-10.1); Osmolality,Calculated 289.1 MOS/KG (273-304); Potassium 3.8 MMOL/L (3.5-5.1)
[2021-05-31] MEDS: SODIUM CHLORIDE 0.9% 1,000 ML IV SCH ×3 (05:53→19:30)
[2021-05-31] MEDS: cefTRIAXone 1,000 MG in SODIUM CHLORIDE 0.9% 100 ML IV SCH ×2 (08:38→08:48)
[2021-05-31] MEDS: POTASSIUM CHLORIDE 20 MEQ TABLET PO SCH ×2 (08:40→08:47)
[2021-05-31] MEDS: carvediloL 6.25 MG TABLET PO SCH ×2 (08:40→08:49)
[2021-05-31] MEDS: FUROSEMIDE 20 MG TABLET PO SCH ×2 (08:40→08:47)
[2021-05-31] MEDS: cloNIDine 0.1 MG TABLET PO SCH ×2 (08:40→08:47)
[2021-05-31] MEDS: MULTIVITAMIN (CENTRUM) TABLET PO SCH ×2 (08:40→08:47)
[2021-05-31] MEDS: DOCUSATE SODIUM 100 MG CAPSULE PO SCH ×3 (08:40→21:56)
[2021-05-31] MEDS: EZETIMIBE 10 MG TABLET PO SCH ×2 (08:40→08:48)
[2021-05-31] MEDS: LOSARTAN 25 MG TABLET PO SCH ×2 (08:40→08:47)
[2021-05-31] MEDS: ROSUVASTATIN 20 MG TABLET PO SCH ×2 (08:41→08:47)
[2021-05-31] MEDS: GABAPENTIN 100 MG CAPSULE PO SCH ×3 (08:41→21:56)
[2021-05-31] MEDS ORDERED: SODIUM CHLORIDE 0.9% 1,000 ML IV PRN (11:19)
[2021-05-31] MEDS ORDERED: ACETAMINOPHEN 500 MG TABLET PO ONE (11:20)
[2021-05-31] MEDS ORDERED: diphenhydrAMINE 25 MG/10 ML UDCUP PO ONE (11:30)
[2021-05-31] MEDS: MAGNESIUM CHLORIDE 64 MG TABLET PO SCH ×2 (12:53→21:56)
[2021-06-01] MEDS: SODIUM CHLORIDE 0.9% 1,000 ML IV SCH (08:27)
[2021-06-01] MEDS: cefTRIAXone 1,000 MG in SODIUM CHLORIDE 0.9% 100 ML IV SCH ×2 (08:27→08:40)
[2021-06-01] MEDS: DOCUSATE SODIUM 100 MG CAPSULE PO SCH ×3 (08:29→21:48)
[2021-06-01] MEDS: ROSUVASTATIN 20 MG TABLET PO SCH ×2 (08:29→08:40)
[2021-06-01] MEDS: EZETIMIBE 10 MG TABLET PO SCH ×2 (08:29→08:40)
[2021-06-01] MEDS: MULTIVITAMIN (CENTRUM) TABLET PO SCH ×2 (08:29→08:39)
[2021-06-01] MEDS: GABAPENTIN 100 MG CAPSULE PO SCH ×3 (08:29→21:48)
[2021-06-01] MEDS: carvediloL 6.25 MG TABLET PO SCH ×2 (08:29→08:39)
[2021-06-01] MEDS: cloNIDine 0.1 MG TABLET PO SCH ×2 (08:29→08:39)
[2021-06-01] MEDS: LOSARTAN 25 MG TABLET PO SCH ×2 (08:30→08:40)
[2021-06-01] MEDS: MAGNESIUM CHLORIDE 64 MG TABLET PO SCH ×3 (08:30→21:48)
[2021-06-01] MEDS: POTASSIUM CHLORIDE 20 MEQ TABLET PO SCH ×2 (08:30→08:40)
[2021-06-01] MEDS ORDERED: SODIUM PHOSPHATE ENEMA 133 ML BOTTLE RECTAL ONE (10:55)
[2021-06-01] MEDS ORDERED: LACTULOSE 20 GM/30 ML UDCUP PO ONE (10:56)
[2021-06-01] MEDS ORDERED: ONDANSETRON 4 MG/2 ML VIAL IV ONE (11:00)
[2021-06-01] MEDS: traMADol 50 MG TABLET PO PRN (21:51)
[2021-06-02] MEDS: ONDANSETRON 4 MG/2 ML VIAL IV PRN (07:25)
[2021-06-02] MEDS: cefTRIAXone 1,000 MG in SODIUM CHLORIDE 0.9% 100 ML IV SCH (09:00)
[2021-06-02 09:08] LABS: Basophils # 0.1 10*3/uL (0.0-0.2); Basophils % 0.5 % (0.0-0.8); Eosinophils # 1.2 10*3/uL (0.0-0.87); Eosinophils % 8.1 % (0.00-10.9); Immature Granulocytes % 0.4 %; Immature Granulocytes Absolute 0.06 #; Lymphocytes % 20.9 % (21.3-54.2); Mean Corpuscular HGB Conc 31.7 GM/DL (32-36); Mean Corpuscular Volume 94.6 FL (87-102); Mean Platelet Volume 10.7 FL (9.6-12.0); Monocytes % 11.1 % (1.7-12.7); Platelet Count 155 T/CUMM (130-400); Red Cell Distribution Width 15.9 % (9.3-17.3); White Blood Count 14.4 T/CUMM (4-12)
[2021-06-02 09:10] LABS: Hemoglobin 11.1 GM/DL (12.0-16.0)
[2021-06-02 09:21] LABS: Alanine Aminotransferase 30 U/L (13-56); Albumin 2.7 G/DL (3.4-5.0); Alkaline Phosphatase 62 U/L (45-117); Aspartate Amino Transferase 30 U/L (0-37); Bilirubin,Total < 0.39 MG/DL (0.20-1.00); Blood Urea Nitrogen 23 MG/DL (7-18); Calcium 8.7 MG/DL (8.5-10.1); Carbon Dioxide 24 MMOL/L (21-32); Estimated Glom Filtration Rate 22 ML/MIN; Glucose 98 MG/DL (74-106); Osmolality,Calculated 289.8 MOS/KG (273-304); Potassium 4.2 MMOL/L (3.5-5.1); Sodium 144 MMOL/L (136-145); Total Protein 6.2 G/DL (6.4-8.2)
[2021-06-02] MEDS: PROCHLORPERAZINE 10 MG/2 ML VIAL IV PRN ×2 (09:23→18:39)
[2021-06-02] MEDS: SODIUM CHLORIDE 0.9% 1,000 ML IV SCH ×2 (10:04→17:05)
[2021-06-02] MEDS: POTASSIUM CHLORIDE 20 MEQ TABLET PO SCH (10:04)
[2021-06-02] MEDS: carvediloL 6.25 MG TABLET PO SCH ×2 (10:05→13:02)
[2021-06-02] MEDS: GABAPENTIN 100 MG CAPSULE PO SCH ×3 (10:06→21:43)
[2021-06-02] MEDS: ROSUVASTATIN 20 MG TABLET PO SCH ×2 (10:06→13:02)
[2021-06-02] MEDS: LOSARTAN 25 MG TABLET PO SCH ×2 (10:06→13:02)
[2021-06-02] MEDS: DOCUSATE SODIUM 100 MG CAPSULE PO SCH ×3 (10:06→21:42)
[2021-06-02] MEDS: EZETIMIBE 10 MG TABLET PO SCH ×2 (10:06→13:03)
[2021-06-02] MEDS: MAGNESIUM CHLORIDE 64 MG TABLET PO SCH ×3 (10:06→21:42)
[2021-06-02] MEDS: cloNIDine 0.1 MG TABLET PO SCH ×2 (10:07→13:01)
[2021-06-02] MEDS: MULTIVITAMIN (CENTRUM) TABLET PO SCH ×2 (10:07→13:02)
[2021-06-02] MEDS: hydrALAZINE 20 MG/1 ML VIAL IV PRN (12:30)
[2021-06-03] MEDS: ONDANSETRON 4 MG/2 ML VIAL IV PRN (00:46)
[2021-06-03] MEDS: hydrALAZINE 20 MG/1 ML VIAL IV PRN (00:47)
[2021-06-03] MEDS: PROMETHAZINE 25 MG/1 ML VIAL IM PRN ×2 (01:50→22:22)
[2021-06-03] MEDS: SODIUM CHLORIDE 0.9% 1,000 ML IV SCH ×2 (06:28→12:30)
[2021-06-03] MEDS: cefTRIAXone 1,000 MG in SODIUM CHLORIDE 0.9% 100 ML IV SCH (09:45)
[2021-06-03] MEDS: EZETIMIBE 10 MG TABLET PO SCH (09:46)
[2021-06-03] MEDS: cloNIDine 0.1 MG TABLET PO SCH (09:46)
[2021-06-03] MEDS: POTASSIUM CHLORIDE 20 MEQ TABLET PO SCH (09:46)
[2021-06-03] MEDS: MULTIVITAMIN (CENTRUM) TABLET PO SCH (09:46)
[2021-06-03] MEDS: carvediloL 6.25 MG TABLET PO SCH (09:46)
[2021-06-03] MEDS: GABAPENTIN 100 MG CAPSULE PO SCH ×2 (09:47→20:30)
[2021-06-03] MEDS: ROSUVASTATIN 20 MG TABLET PO SCH (09:47)
[2021-06-03] MEDS: LOSARTAN 25 MG TABLET PO SCH (09:47)
[2021-06-03] MEDS: MAGNESIUM CHLORIDE 64 MG TABLET PO SCH ×2 (09:47→20:30)
[2021-06-03] MEDS: DOCUSATE SODIUM 100 MG CAPSULE PO SCH ×2 (09:48→20:30)
[2021-06-04] MEDS: hydrALAZINE 20 MG/1 ML VIAL IV PRN (00:22)
[2021-06-04] MEDS ORDERED: FUROSEMIDE 20 MG/2 ML VIAL IV ONE (00:25)
[2021-06-04] MEDS ORDERED: ALBUTEROL/IPRATROPIUM 3 ML NEB RESP TX PRN (00:25)
[2021-06-04] MEDS: SODIUM CHLORIDE 0.9% 1,000 ML IV SCH ×2 (03:42→20:02)
[2021-06-04] MEDS ORDERED: cloNIDine 0.1 MG TABLET PO PRN (09:16)
[2021-06-04 09:28] LABS: Basophils # 0.1 10*3/uL (0.0-0.2); Basophils % 0.5 % (0.0-0.8); Eosinophils # 0.2 10*3/uL (0.0-0.87); Eosinophils % 1.8 % (0.00-10.9); Immature Granulocytes % 0.4 %; Immature Granulocytes Absolute 0.05 #; Lymphocytes # 2.9 10*3/uL (1.4-4.0); Lymphocytes % 22.3 % (21.3-54.2); Mean Corpuscular HGB Conc 33.3 GM/DL (32-36); Mean Platelet Volume 10.7 FL (9.6-12.0); Platelet Count 145 T/CUMM (130-400); Red Blood Count 3.55 MC/CUMM (3.8-5.5); Red Cell Distribution Width 15.9 % (9.3-17.3); White Blood Count 13.1 T/CUMM (4-12)
[2021-06-04] MEDS: GABAPENTIN 100 MG CAPSULE PO SCH (09:41)
[2021-06-04] MEDS: LOSARTAN 25 MG TABLET PO SCH (09:41)
[2021-06-04] MEDS: MULTIVITAMIN (CENTRUM) TABLET PO SCH (09:42)
[2021-06-04] MEDS: DOCUSATE SODIUM 100 MG CAPSULE PO SCH (09:42)
[2021-06-04] MEDS: cefTRIAXone 1,000 MG in SODIUM CHLORIDE 0.9% 100 ML IV SCH (09:42)
[2021-06-04] MEDS: ROSUVASTATIN 20 MG TABLET PO SCH (09:42)
[2021-06-04] MEDS: EZETIMIBE 10 MG TABLET PO SCH (09:42)
[2021-06-04] MEDS: POTASSIUM CHLORIDE 20 MEQ TABLET PO SCH (09:42)
[2021-06-04] MEDS: MAGNESIUM CHLORIDE 64 MG TABLET PO SCH (09:42)
[2021-06-04] MEDS: carvediloL 6.25 MG TABLET PO SCH (09:42)
[2021-06-04 09:47] LABS: Calcium 9.3 MG/DL (8.5-10.1); Osmolality,Calculated 290.7 MOS/KG (273-304); Potassium 3.9 MMOL/L (3.5-5.1)
[2021-06-04] MEDS: cloNIDine 0.1 MG TABLET PO SCH (11:15)
[2021-06-04 16:35] VITALS: BP 185/76
== END 2021-06-04 18:06 | disposition home or self-care (01) | DRG 392 ==
LOC: N.EDINP 02:00 → N.ED 02:00 → N.EDINP 07:07 → N.5E 07:19
PROVIDERS: ADMIT Family Medicine; ATTEND Family Medicine

== ENCOUNTER 2021-08-06 12:35 | Inpatient (IN) ==
[2021-08-06] MEDS ORDERED: MAGNESIUM SULF RIDER 4 GM/100 ML PREMIX IV PRN (16:07)
[2021-08-06] MEDS ORDERED: ACETAMINOPHEN 325 MG TABLET PO PRN (16:07)
[2021-08-06] MEDS ORDERED: POTASSIUM CHLORIDE RIDER 10 MEQ/100 ML PREMIX IV PRN (16:07)
[2021-08-06] MEDS ORDERED: NITROGLYCERIN SL 0.4 MG TABLET SL PRN (16:15)
[2021-08-06] MEDS ORDERED: GLUCAGON 1 MG VIAL IM PRN (16:19)
[2021-08-06] MEDS ORDERED: DEXTROSE 50% 25 GM/50 ML VIAL IV PRN (16:19)
[2021-08-06] MEDS: LACTATED RINGERS 1,000 ML IV SCH (16:45)
[2021-08-06 17:03] LABS: Alanine Aminotransferase 40 U/L (13-56); Albumin 3.4 G/DL (3.4-5.0); Alkaline Phosphatase 66 U/L (45-117); Aspartate Amino Transferase 33 U/L (0-37); Bilirubin,Total < 0.39 MG/DL (0.20-1.00); Blood Urea Nitrogen 78 MG/DL (7-18); Calcium 9.4 MG/DL (8.5-10.1); Carbon Dioxide 18 MMOL/L (21-32); Estimated Glom Filtration Rate 5 ML/MIN; Glucose 106 MG/DL (74-106); Osmolality,Calculated 290.2 MOS/KG (273-304); Sodium 134 MMOL/L (136-145); Total Protein 7.5 G/DL (6.4-8.2)
[2021-08-06 17:09] LABS: Potassium 7.4 MMOL/L (3.5-5.1)
[2021-08-06] MEDS: ONDANSETRON 4 MG/2 ML VIAL IV PRN (17:11)
[2021-08-06] MEDS ORDERED: CALCIUM GLUCONATE 1,000 MG in SODIUM CHLORIDE 0.9% 100 ML IV ONE (17:12)
[2021-08-06] MEDS ORDERED: DEXTROSE 50% 25 GM/50 ML VIAL IV ONE (17:13)
[2021-08-06] MEDS ORDERED: SODIUM BICARBONATE 50 MEQ/50 ML VIAL IV ONE (17:13)
[2021-08-06 17:15] LABS: Basophils # 0.1 10*3/uL (0.0-0.2); Basophils % 0.4 % (0.0-0.8); Eosinophils # 0.2 10*3/uL (0.0-0.87); Eosinophils % 1.2 % (0.00-10.9); Hematocrit 34.9 VOL% (35.7-47.0); Immature Granulocytes % 0.7 %; Immature Granulocytes Absolute 0.12 #; Lymphocytes # 3.3 10*3/uL (1.4-4.0); Lymphocytes % 18.2 % (21.3-54.2); Mean Corpuscular HGB Conc 29.2 GM/DL (32-36); Mean Platelet Volume 10.8 FL (9.6-12.0); Neutrophils % 72.5 % (38.7-73.9); Platelet Count 313 T/CUMM (130-400); Red Blood Count 3.49 MC/CUMM (3.8-5.5); Red Cell Distribution Width 14.7 % (9.3-17.3); White Blood Count 18.2 T/CUMM (4-12)
[2021-08-06] MEDS ORDERED: SODIUM POLYSTYRENE SULFATE 15 GM/60 ML BOTTLE PO STA (17:15)
[2021-08-06] MEDS: INSULIN LISPRO 100 UNIT/ML SUBCUT SCH ×2 (17:15→23:29)
[2021-08-06] MEDS ORDERED: INSULIN REGULAR 100 UNIT/ML IV ONE (17:15)
[2021-08-06 17:18] LABS: Hemoglobin 10.2 GM/DL (12.0-16.0)
[2021-08-06] MEDS: DOCUSATE SODIUM 100 MG CAPSULE PO SCH (20:12)
[2021-08-07 00:25] LABS: Bilirubin,Urine Negative (Negative); Blood, Urine Negative (Negative); Glucose,Urine (UA) 50 mg/dL (Negative); Ketones,Urine Negative (Negative); Nitrite,Urine Negative (Negative); Protein,Urine 100 MG/DL; RBC,Urine 1 /HPF (0-4); Squamous Epithelial Cell,Urine Occasional /HPF (0-10); Urine Appearance CLEAR (Clear); Urine Color Straw (Yellow); Urine Specific Gravity 1.009 (1.001-1.035); Urine Urobilinogen < 2.0 EU/DL (0.2-1.0)
[2021-08-07] MEDS: LACTATED RINGERS 1,000 ML IV SCH ×2 (02:00→08:49)
[2021-08-07] MEDS: ONDANSETRON 4 MG/2 ML VIAL IV PRN ×2 (03:01→23:41)
[2021-08-07] MEDS: INSULIN LISPRO 100 UNIT/ML SUBCUT SCH ×4 (06:04→20:11)
[2021-08-07 06:45] LABS: Basophils # 0.1 10*3/uL (0.0-0.2); Basophils % 0.5 % (0.0-0.8); Eosinophils # 0.9 10*3/uL (0.0-0.87); Eosinophils % 5.2 % (0.00-10.9); Hematocrit 26.4 VOL% (35.7-47.0); Hemoglobin 8.3 GM/DL (12.0-16.0); Immature Granulocytes % 0.5 %; Immature Granulocytes Absolute 0.08 #; Lymphocytes # 5.6 10*3/uL (1.4-4.0); Lymphocytes % 31.6 % (21.3-54.2); Mean Corpuscular HGB Conc 31.4 GM/DL (32-36); Mean Platelet Volume 11.1 FL (9.6-12.0); Monocytes % 9.1 % (1.7-12.7); Neutrophils % 53.1 % (38.7-73.9); Platelet Count 260 T/CUMM (130-400); Red Blood Count 2.78 MC/CUMM (3.8-5.5); Red Cell Distribution Width 14.8 % (9.3-17.3); White Blood Count 17.7 T/CUMM (4-12)
[2021-08-07 07:09] LABS: Albumin 2.5 G/DL (3.4-5.0); Bilirubin,Total 0.4 MG/DL (0.20-1.00); Calcium 8.7 MG/DL (8.5-10.1); Eosinophils 5 % (0-10); Hypochromasia 1+; Lymphocytes 23 % (20-55); Microcytosis 1+; Osmolality,Calculated 298.4 MOS/KG (273-304); Platelet Estimate Adequate; Potassium 5.8 MMOL/L (3.5-5.1); Segmented Neutrophils 64 % (50-85); Total Cells Counted 100; Total Protein 5.5 G/DL (6.4-8.2)
[2021-08-07] MEDS: PANTOPRAZOLE 40 MG TABLET PO SCH (08:47)
[2021-08-07] MEDS: DOCUSATE SODIUM 100 MG CAPSULE PO SCH ×2 (08:47→20:18)
[2021-08-07] MEDS: PIPERACILLIN/TAZOBACTAM 3,375 MG in SODIUM CHLORIDE 0.9% 100 ML IV SCH ×2 (12:39→23:46)
[2021-08-07 14:08] LABS: Hematocrit 26.8 VOL% (35.7-47.0); Hemoglobin 8.3 GM/DL (12.0-16.0)
[2021-08-07] MEDS: SODIUM BICARB INJ 50 MEQ in SODIUM CHLORIDE 0.45% 1,000 ML IV SCH (16:34)
[2021-08-07] MEDS: MAGNESIUM SULF RIDER 2 GM/50 ML PREMIX IV PRN (16:34)
[2021-08-07] MEDS: carvediloL 3.125 MG TABLET PO SCH (17:24)
[2021-08-08] MEDS: SODIUM BICARB INJ 50 MEQ in SODIUM CHLORIDE 0.45% 1,000 ML IV SCH ×2 (02:16→13:24)
[2021-08-08] MEDS: ONDANSETRON 4 MG/2 ML VIAL IV PRN (06:36)
[2021-08-08 06:37] LABS: Basophils # 0.1 10*3/uL (0.0-0.2); Basophils % 0.5 % (0.0-0.8); Eosinophils # 1.3 10*3/uL (0.0-0.87); Eosinophils % 7.7 % (0.00-10.9); Hematocrit 27.2 VOL% (35.7-47.0); Hemoglobin 8.5 GM/DL (12.0-16.0); Immature Granulocytes % 0.4 %; Immature Granulocytes Absolute 0.07 #; Lymphocytes # 4.6 10*3/uL (1.4-4.0); Lymphocytes % 28.2 % (21.3-54.2); Mean Corpuscular HGB Conc 31.3 GM/DL (32-36); Mean Corpuscular Volume 95.4 FL (87-102); Mean Platelet Volume 10.9 FL (9.6-12.0); Monocytes % 10.9 % (1.7-12.7); Neutrophils % 52.3 % (38.7-73.9); Platelet Count 268 T/CUMM (130-400); Red Blood Count 2.85 MC/CUMM (3.8-5.5); Red Cell Distribution Width 14.7 % (9.3-17.3); White Blood Count 16.5 T/CUMM (4-12)
[2021-08-08 06:52] LABS: Albumin 2.4 G/DL (3.4-5.0); Bilirubin,Total 0.8 MG/DL (0.20-1.00); Calcium 8.3 MG/DL (8.5-10.1); Osmolality,Calculated 297.3 MOS/KG (273-304); Potassium 5.3 MMOL/L (3.5-5.1)
[2021-08-08] MEDS: INSULIN LISPRO 100 UNIT/ML SUBCUT SCH ×4 (09:29→21:18)
[2021-08-08] MEDS: DOCUSATE SODIUM 100 MG CAPSULE PO SCH ×2 (09:30→21:18)
[2021-08-08] MEDS: carvediloL 3.125 MG TABLET PO SCH ×2 (09:30→17:39)
[2021-08-08] MEDS: ASPIRIN EC 81 MG TABLET PO SCH (09:30)
[2021-08-08] MEDS: PANTOPRAZOLE 40 MG TABLET PO SCH (09:30)
[2021-08-08] MEDS: PROMETHAZINE 25 MG/1 ML VIAL IM PRN (10:26)
[2021-08-08] MEDS ORDERED: LACTATED RINGERS 1,000 ML IV SCH (11:00)
[2021-08-08] MEDS: PIPERACILLIN/TAZOBACTAM 3,375 MG in SODIUM CHLORIDE 0.9% 100 ML IV SCH (13:25)
[2021-08-09] MEDS: PIPERACILLIN/TAZOBACTAM 3,375 MG in SODIUM CHLORIDE 0.9% 100 ML IV SCH ×2 (00:26→11:57)
[2021-08-09] MEDS: SODIUM BICARB INJ 50 MEQ in SODIUM CHLORIDE 0.45% 1,000 ML IV SCH ×4 (04:57→20:53)
[2021-08-09] MEDS: INSULIN LISPRO 100 UNIT/ML SUBCUT SCH ×4 (08:20→20:53)
[2021-08-09] MEDS: PANTOPRAZOLE 40 MG TABLET PO SCH (08:21)
[2021-08-09] MEDS: DOCUSATE SODIUM 100 MG CAPSULE PO SCH ×2 (08:21→20:51)
[2021-08-09] MEDS: carvediloL 3.125 MG TABLET PO SCH ×2 (08:21→17:04)
[2021-08-09] MEDS: ASPIRIN EC 81 MG TABLET PO SCH (08:23)
[2021-08-10] MEDS: PIPERACILLIN/TAZOBACTAM 3,375 MG in SODIUM CHLORIDE 0.9% 100 ML IV SCH ×2 (00:18→12:07)
[2021-08-10 04:43] LABS: Basophils # 0.1 10*3/uL (0.0-0.2); Basophils % 0.5 % (0.0-0.8); Eosinophils # 1.5 10*3/uL (0.0-0.87); Eosinophils % 8.4 % (0.00-10.9); Hematocrit 25.8 VOL% (35.7-47.0); Immature Granulocytes % 0.3 %; Immature Granulocytes Absolute 0.06 #; Lymphocytes # 6.3 10*3/uL (1.4-4.0); Mean Corpuscular Volume 94.2 FL (87-102); Mean Platelet Volume 10.7 FL (9.6-12.0); Monocytes % 9.6 % (1.7-12.7); Neutrophils % 45.2 % (38.7-73.9); Platelet Count 267 T/CUMM (130-400); Red Blood Count 2.74 MC/CUMM (3.8-5.5); Red Cell Distribution Width 14.6 % (9.3-17.3); White Blood Count 17.4 T/CUMM (4-12)
[2021-08-10 05:15] LABS: Alanine Aminotransferase 19 U/L (13-56); Albumin 2.4 G/DL (3.4-5.0); Alkaline Phosphatase 45 U/L (45-117); Aspartate Amino Transferase 17 U/L (0-37); Bilirubin,Direct < 0.100 MG/DL (0.0-0.20); Bilirubin,Indirect 0.5 MG/DL (0.0-1.0); Blood Urea Nitrogen 54 MG/DL (7-18); Calcium 7.8 MG/DL (8.5-10.1); Carbon Dioxide 25 MMOL/L (21-32); Estimated Glom Filtration Rate 7 ML/MIN; Glucose 86 MG/DL (74-106); Osmolality,Calculated 294.3 MOS/KG (273-304); Potassium 4.3 MMOL/L (3.5-5.1); Sodium 141 MMOL/L (136-145); Total Protein 5.5 G/DL (6.4-8.2)
[2021-08-10] MEDS: SODIUM BICARB INJ 50 MEQ in SODIUM CHLORIDE 0.45% 1,000 ML IV SCH (06:10)
[2021-08-10] MEDS: INSULIN LISPRO 100 UNIT/ML SUBCUT SCH ×4 (07:51→22:42)
[2021-08-10] MEDS: DOCUSATE SODIUM 100 MG CAPSULE PO SCH ×2 (08:55→22:42)
[2021-08-10] MEDS: carvediloL 3.125 MG TABLET PO SCH ×2 (08:55→16:19)
[2021-08-10] MEDS: PANTOPRAZOLE 40 MG TABLET PO SCH (08:55)
[2021-08-10] MEDS: ASPIRIN EC 81 MG TABLET PO SCH (08:56)
[2021-08-10] MEDS: PROMETHAZINE 25 MG/1 ML VIAL IM PRN (22:30)
[2021-08-11] MEDS: PIPERACILLIN/TAZOBACTAM 3,375 MG in SODIUM CHLORIDE 0.9% 100 ML IV SCH ×2 (01:08→11:05)
[2021-08-11 06:40] LABS: Basophils # 0.1 10*3/uL (0.0-0.2); Basophils % 0.4 % (0.0-0.8); Eosinophils # 1.2 10*3/uL (0.0-0.87); Eosinophils % 7.7 % (0.00-10.9); Hematocrit 27.1 VOL% (35.7-47.0); Hemoglobin 8.4 GM/DL (12.0-16.0); Immature Granulocytes % 0.4 %; Immature Granulocytes Absolute 0.07 #; Lymphocytes # 4.8 10*3/uL (1.4-4.0); Lymphocytes % 30.5 % (21.3-54.2); Mean Corpuscular Volume 94.4 FL (87-102); Mean Platelet Volume 10.5 FL (9.6-12.0); Monocytes % 8.6 % (1.7-12.7); Neutrophils % 52.4 % (38.7-73.9); Platelet Count 257 T/CUMM (130-400); Red Blood Count 2.87 MC/CUMM (3.8-5.5); Red Cell Distribution Width 14.7 % (9.3-17.3); White Blood Count 15.8 T/CUMM (4-12)
[2021-08-11 07:11] LABS: Albumin 2.5 G/DL (3.4-5.0); Bilirubin,Total 0.8 MG/DL (0.20-1.00); Osmolality,Calculated 293.3 MOS/KG (273-304); Total Protein 5.9 G/DL (6.4-8.2)
[2021-08-11] MEDS: SODIUM BICARB INJ 50 MEQ in SODIUM CHLORIDE 0.45% 1,000 ML IV SCH ×3 (08:03→18:17)
[2021-08-11] MEDS: INSULIN LISPRO 100 UNIT/ML SUBCUT SCH ×4 (08:03→21:38)
[2021-08-11] MEDS: PANTOPRAZOLE 40 MG TABLET PO SCH (09:40)
[2021-08-11] MEDS: ASPIRIN EC 81 MG TABLET PO SCH (09:40)
[2021-08-11] MEDS: MAGNESIUM SULF RIDER 2 GM/50 ML PREMIX IV PRN (09:41)
[2021-08-11] MEDS: carvediloL 3.125 MG TABLET PO SCH ×2 (09:41→17:05)
[2021-08-11] MEDS: DOCUSATE SODIUM 100 MG CAPSULE PO SCH ×2 (09:41→21:37)
[2021-08-11] MEDS: APIXABAN 2.5 MG TABLET PO SCH ×2 (11:05→21:37)
[2021-08-12] MEDS: PIPERACILLIN/TAZOBACTAM 3,375 MG in SODIUM CHLORIDE 0.9% 100 ML IV SCH (00:27)
[2021-08-12 07:05] LABS: Basophils # 0.1 10*3/uL (0.0-0.2); Basophils % 0.6 % (0.0-0.8); Eosinophils # 1.6 10*3/uL (0.0-0.87); Eosinophils % 8.8 % (0.00-10.9); Hematocrit 26.8 VOL% (35.7-47.0); Hemoglobin 8.5 GM/DL (12.0-16.0); Immature Granulocytes % 0.2 %; Immature Granulocytes Absolute 0.04 #; Lymphocytes # 4.9 10*3/uL (1.4-4.0); Lymphocytes % 27.7 % (21.3-54.2); Mean Corpuscular HGB Conc 31.7 GM/DL (32-36); Mean Corpuscular Volume 94.7 FL (87-102); Mean Platelet Volume 10.6 FL (9.6-12.0); Monocytes % 8.6 % (1.7-12.7); Neutrophils % 54.1 % (38.7-73.9); Platelet Count 251 T/CUMM (130-400); Red Blood Count 2.83 MC/CUMM (3.8-5.5); Red Cell Distribution Width 14.7 % (9.3-17.3); White Blood Count 17.7 T/CUMM (4-12)
[2021-08-12 07:23] LABS: Calcium 8.1 MG/DL (8.5-10.1); Osmolality,Calculated 292.3 MOS/KG (273-304); Potassium 4.1 MMOL/L (3.5-5.1)
[2021-08-12 07:47] LABS: Eosinophils 8 % (0-10); Lymphocytes 26 % (20-55); Nucleated Red Blood Cells 1 (0-5); Segmented Neutrophils 57 % (50-85); Total Cells Counted 100
[2021-08-12 07:48] LABS: Platelet Estimate Normal
[2021-08-12 07:50] LABS: Microcytosis Slight
[2021-08-12 08:46] VITALS: BP 163/84
[2021-08-12] MEDS: INSULIN LISPRO 100 UNIT/ML SUBCUT SCH (08:54)
[2021-08-12] MEDS ORDERED: ASPIRIN CHEW 81 MG TABLET PO SCH (09:00)
[2021-08-12] MEDS ORDERED: ROSUVASTATIN 20 MG TABLET PO SCH (09:00)
[2021-08-12] MEDS: carvediloL 3.125 MG TABLET PO SCH (10:40)
[2021-08-12] MEDS: PANTOPRAZOLE 40 MG TABLET PO SCH (10:40)
[2021-08-12] MEDS: ASPIRIN EC 81 MG TABLET PO SCH (10:40)
[2021-08-12] MEDS: DOCUSATE SODIUM 100 MG CAPSULE PO SCH (10:41)
[2021-08-12] MEDS: APIXABAN 2.5 MG TABLET PO SCH (10:41)
== END 2021-08-12 10:55 | disposition home or self-care (01) | DRG 683 ==
LOC: N.5E
PROVIDERS: ADMIT Family Medicine; ATTEND Family Medicine

== ENCOUNTER 2021-08-28 18:13 | Observation (INO) ==
[2021-08-28 20:29] LABS: Basophils # 0.1 10*3/uL (0.0-0.2); Basophils % 0.6 % (0.0-0.8); Eosinophils # 0.8 10*3/uL (0.0-0.87); Eosinophils % 5.2 % (0.00-10.9); Hematocrit 41.2 VOL% (35.7-47.0); Hemoglobin 12.7 GM/DL (12.0-16.0); Immature Granulocytes % 0.4 %; Immature Granulocytes Absolute 0.06 #; Lymphocytes # 5.7 10*3/uL (1.4-4.0); Lymphocytes % 35.9 % (21.3-54.2); Mean Corpuscular HGB Conc 30.8 GM/DL (32-36); Mean Corpuscular Volume 91.6 FL (87-102); Mean Platelet Volume 11.5 FL (9.6-12.0); Monocytes % 12.7 % (1.7-12.7); Neutrophils % 45.2 % (38.7-73.9); Platelet Count 300 T/CUMM (130-400); Red Cell Distribution Width 15.4 % (9.3-17.3); White Blood Count 15.9 T/CUMM (4-12)
[2021-08-28 20:43] LABS: Calcium 9.7 MG/DL (8.5-10.1); Osmolality,Calculated 286.8 MOS/KG (273-304); Potassium 5.7 MMOL/L (3.5-5.1)
[2021-08-28] MEDS ORDERED: SODIUM POLYSTYRENE SULFATE 15 GM/60 ML BOTTLE PO STA ×3 (22:13→23:02)
[2021-08-28] MEDS ORDERED: FUROSEMIDE 20 MG/2 ML VIAL IV STA (22:13)
[2021-08-28] MEDS ORDERED: SODIUM CHLORIDE 0.9% 1,000 ML IV STA (22:13)
[2021-08-28] MEDS ORDERED: FUROSEMIDE 40 MG/4 ML VIAL ONE (22:26)
[2021-08-28] MEDS ORDERED: ONDANSETRON 4 MG/2 ML VIAL IV STA (22:37)
[2021-08-28] MEDS ORDERED: ONDANSETRON 4 MG/2 ML VIAL ONE (22:38)
[2021-08-28] MEDS ORDERED: ACETAMINOPHEN 325 MG TABLET PO PRN (23:02)
[2021-08-28] MEDS ORDERED: ONDANSETRON 4 MG/2 ML VIAL IV PRN (23:02)
[2021-08-29] MEDS ORDERED: SODIUM POLYSTYRENE SULFATE 15 GM/60 ML BOTTLE PO SCH (02:00)
[2021-08-29] MEDS: SODIUM CHLORIDE 0.45% 1,000 ML IV SCH ×2 (05:38→09:28)
[2021-08-29 06:27] LABS: Osmolality,Calculated 295.1 MOS/KG (273-304)
[2021-08-29] MEDS ORDERED: NITROGLYCERIN SL 0.4 MG TABLET SL PRN (09:23)
[2021-08-29] MEDS: PANTOPRAZOLE 40 MG TABLET PO SCH (09:27)
[2021-08-29] MEDS: DOCUSATE SODIUM 100 MG CAPSULE PO SCH ×2 (09:27→22:09)
[2021-08-29] MEDS: PIPERACILLIN/TAZOBACTAM 3,375 MG in SODIUM CHLORIDE 0.9% 100 ML IV SCH ×2 (11:17→22:09)
[2021-08-29 12:01] LABS: Bilirubin,Urine Negative (Negative); Blood, Urine Large mg/dL (Negative); Glucose,Urine (UA) Negative (Negative); Ketones,Urine Negative (Negative); Nitrite,Urine Negative (Negative); Protein,Urine 100 MG/DL; RBC,Urine 548 /HPF (0-4); Urine Appearance CLEAR (Clear); Urine Color Red (Yellow); Urine Specific Gravity 1.008 (1.001-1.035); Urine Urobilinogen < 2.0 EU/DL (0.2-1.0)
[2021-08-29] MEDS: carvediloL 3.125 MG TABLET PO SCH (16:53)
[2021-08-29] MEDS: APIXABAN 2.5 MG TABLET PO SCH (22:09)
[2021-08-30 04:27] LABS: Basophils # 0.1 10*3/uL (0.0-0.2); Basophils % 0.7 % (0.0-0.8); Eosinophils # 1.3 10*3/uL (0.0-0.87); Eosinophils % 8.5 % (0.00-10.9); Hematocrit 35.8 VOL% (35.7-47.0); Hemoglobin 10.9 GM/DL (12.0-16.0); Immature Granulocytes % 0.3 %; Immature Granulocytes Absolute 0.05 #; Lymphocytes # 5.5 10*3/uL (1.4-4.0); Lymphocytes % 35.4 % (21.3-54.2); Mean Corpuscular HGB Conc 30.4 GM/DL (32-36); Mean Corpuscular Volume 93.2 FL (87-102); Mean Platelet Volume 11.3 FL (9.6-12.0); Monocytes % 11.7 % (1.7-12.7); Neutrophils % 43.4 % (38.7-73.9); Platelet Count 264 T/CUMM (130-400); Red Blood Count 3.84 MC/CUMM (3.8-5.5); Red Cell Distribution Width 15.4 % (9.3-17.3); White Blood Count 15.6 T/CUMM (4-12)
[2021-08-30 04:39] LABS: Calcium 8.6 MG/DL (8.5-10.1); Osmolality,Calculated 293.3 MOS/KG (273-304); Potassium 4.5 MMOL/L (3.5-5.1)
[2021-08-30 04:57] LABS: Eosinophils 5 % (0-10); Lymphocytes 38 % (20-55); Platelet Estimate Normal; Segmented Neutrophils 50 % (50-85); Total Cells Counted 100
[2021-08-30 04:58] LABS: Hypochromasia Slight; Ovalocytes Slight
[2021-08-30 04:59] LABS: Polychromasia Slight
[2021-08-30] MEDS: PIPERACILLIN/TAZOBACTAM 3,375 MG in SODIUM CHLORIDE 0.9% 100 ML IV SCH (08:52)
[2021-08-30] MEDS ORDERED: MULTIVITAMIN (BEROCCA) TABLET PO SCH (09:00)
[2021-08-30] MEDS ORDERED: ROSUVASTATIN 20 MG TABLET PO SCH (09:00)
[2021-08-30] MEDS ORDERED: MAGNESIUM CHLORIDE 64 MG TABLET PO SCH (09:00)
[2021-08-30] MEDS ORDERED: ASPIRIN EC 81 MG TABLET PO SCH (09:00)
[2021-08-30] MEDS: APIXABAN 2.5 MG TABLET PO SCH (09:26)
[2021-08-30] MEDS: PANTOPRAZOLE 40 MG TABLET PO SCH (09:26)
[2021-08-30] MEDS: carvediloL 3.125 MG TABLET PO SCH ×2 (09:26→16:00)
[2021-08-30] MEDS: DOCUSATE SODIUM 100 MG CAPSULE PO SCH (09:31)
[2021-08-30 15:53] VITALS: BP 143/95
== END 2021-08-30 20:21 | disposition home health service (06) ==
LOC: N.ED 18:13 → N.EDINP 22:22 → INTOOBSV 22:22 → N.TELES 23:07
PROVIDERS: ADMIT Family Medicine; ATTEND Family Medicine

== ENCOUNTER 2021-11-16 07:25 | Inpatient (IN) ==
[2021-11-16] MEDS ORDERED: MORPHINE 2 MG/1 ML SYRINGE IV STA (10:49)
[2021-11-16] MEDS ORDERED: ONDANSETRON 4 MG/2 ML VIAL IV STA (10:49)
[2021-11-16 10:55] LABS: Basophils % 0.3 % (0.0-0.8); Eosinophils # 0.1 10*3/uL (0.0-0.87); Eosinophils % 0.7 % (0.00-10.9); Hematocrit 33.3 VOL% (35.7-47.0); Hemoglobin 10.3 GM/DL (12.0-16.0); Immature Granulocytes % 0.4 %; Immature Granulocytes Absolute 0.06 #; Mean Corpuscular HGB Conc 30.9 GM/DL (32-36); Mean Corpuscular Volume 91.2 FL (87-102); Mean Platelet Volume 12.7 FL (9.6-12.0); Monocytes % 11.1 % (1.7-12.7); Neutrophils % 67.5 % (38.7-73.9); Platelet Count 283 T/CUMM (130-400); Red Blood Count 3.65 MC/CUMM (3.8-5.5); Red Cell Distribution Width 15.3 % (9.3-17.3); White Blood Count 15.2 T/CUMM (4-12)
[2021-11-16 11:07] LABS: Albumin 2.7 G/DL (3.4-5.0); Bilirubin,Total 0.5 MG/DL (0.20-1.00); Calcium 9.3 MG/DL (8.5-10.1); Osmolality,Calculated 296.7 MOS/KG (273-304); Potassium 4.7 MMOL/L (3.5-5.1); Total Protein 7.2 G/DL (6.4-8.2)
[2021-11-16 12:20] LABS: Bilirubin,Urine Negative (Negative); Blood, Urine Small mg/dL (Negative); Glucose,Urine (UA) Negative (Negative); Ketones,Urine 5 mg/dL (Negative); Nitrite,Urine Negative (Negative); Protein,Urine >=500 MG/DL; RBC,Urine <1 /HPF (0-4); Squamous Epithelial Cell,Urine Occasional /HPF (0-10); Urine Appearance CLEAR (Clear); Urine Color Yellow (Yellow); Urine Specific Gravity 1.009 (1.001-1.035); Urine Urobilinogen < 2.0 EU/DL (<2.0)
[2021-11-16] MEDS: SODIUM CHLORIDE 0.9% 1,000 ML IV SCH (13:36)
[2021-11-16] MEDS ORDERED: LOPERAMIDE 2 MG CAPSULE PO PRN (15:35)
[2021-11-16] MEDS ORDERED: NITROGLYCERIN SL 0.4 MG TABLET SL PRN (15:35)
[2021-11-16] MEDS ORDERED: traMADol 50 MG TABLET PO PRN (16:39)
[2021-11-16] MEDS: carvediloL 3.125 MG TABLET PO SCH (19:22)
[2021-11-16] MEDS: SACUBITRIL/VALSARTAN 49-51 MG TABLET PO SCH (22:08)
[2021-11-16] MEDS: DOCUSATE SODIUM 100 MG CAPSULE PO SCH (22:28)
[2021-11-17] MEDS: SODIUM CHLORIDE 0.9% 1,000 ML IV SCH ×2 (05:27→17:47)
[2021-11-17] MEDS: ONDANSETRON 4 MG/2 ML VIAL IV PRN (05:28)
[2021-11-17 05:59] LABS: Basophils # 0.1 10*3/uL (0.0-0.2); Basophils % 0.3 % (0.0-0.8); Eosinophils # 0.1 10*3/uL (0.0-0.87); Eosinophils % 0.7 % (0.00-10.9); Hematocrit 28.8 VOL% (35.7-47.0); Hemoglobin 8.8 GM/DL (12.0-16.0); Immature Granulocytes % 0.8 %; Immature Granulocytes Absolute 0.13 #; Lymphocytes # 3.4 10*3/uL (1.4-4.0); Mean Corpuscular HGB Conc 30.6 GM/DL (32-36); Mean Corpuscular Volume 94.1 FL (87-102); Mean Platelet Volume 12.9 FL (9.6-12.0); Monocytes % 11.1 % (1.7-12.7); Neutrophils % 66.1 % (38.7-73.9); Platelet Count 226 T/CUMM (130-400); Red Blood Count 3.06 MC/CUMM (3.8-5.5); Red Cell Distribution Width 15.6 % (9.3-17.3); White Blood Count 16.3 T/CUMM (4-12)
[2021-11-17 06:18] LABS: Calcium 8.2 MG/DL (8.5-10.1)
[2021-11-17 09:25] LABS: INR 1.2; PT Patient Result 12.7 SECS (10.5-12.0); Partial Thromboplastin Time 28.9 SECS (23.8-32.1)
[2021-11-17] MEDS: MAGNESIUM CHLORIDE 64 MG TABLET PO SCH (10:20)
[2021-11-17] MEDS: FUROSEMIDE 20 MG TABLET PO SCH (10:20)
[2021-11-17] MEDS: carvediloL 3.125 MG TABLET PO SCH ×2 (10:21→18:18)
[2021-11-17] MEDS: amLODIPine 5 MG TABLET PO SCH (10:21)
[2021-11-17] MEDS: SACUBITRIL/VALSARTAN 49-51 MG TABLET PO SCH (10:21)
[2021-11-17] MEDS: PANTOPRAZOLE 40 MG TABLET PO SCH (10:21)
[2021-11-17] MEDS: ASPIRIN EC 81 MG TABLET PO SCH (10:42)
[2021-11-17] MEDS: DOCUSATE SODIUM 100 MG CAPSULE PO SCH (10:42)
[2021-11-18] MEDS: DOCUSATE SODIUM 100 MG CAPSULE PO SCH ×4 (00:11→20:57)
[2021-11-18] MEDS: ROSUVASTATIN 20 MG TABLET PO SCH ×2 (00:11→20:56)
[2021-11-18] MEDS: SACUBITRIL/VALSARTAN 49-51 MG TABLET PO SCH ×3 (00:11→20:56)
[2021-11-18 07:06] LABS: Basophils % 0.2 % (0.0-0.8); Eosinophils # 0.4 10*3/uL (0.0-0.87); Eosinophils % 2.3 % (0.00-10.9); Hemoglobin 8.4 GM/DL (12.0-16.0); Immature Granulocytes % 0.6 %; Lymphocytes # 2.7 10*3/uL (1.4-4.0); Lymphocytes % 15.7 % (21.3-54.2); Mean Corpuscular HGB Conc 31.1 GM/DL (32-36); Mean Corpuscular Volume 91.2 FL (87-102); Mean Platelet Volume 13.2 FL (9.6-12.0); Monocytes % 10.3 % (1.7-12.7); Neutrophils % 70.9 % (38.7-73.9); Platelet Count 213 T/CUMM (130-400); Red Blood Count 2.96 MC/CUMM (3.8-5.5); Red Cell Distribution Width 15.2 % (9.3-17.3); White Blood Count 17.4 T/CUMM (4-12)
[2021-11-18 07:36] LABS: Alanine Aminotransferase 14 U/L (13-56); Albumin 1.7 G/DL (3.4-5.0); Alkaline Phosphatase 48 U/L (45-117); Aspartate Amino Transferase 15 U/L (0-37); Bilirubin,Total < 0.39 MG/DL (0.20-1.00); Blood Urea Nitrogen 77 MG/DL (7-18); Calcium 8.2 MG/DL (8.5-10.1); Carbon Dioxide 17 MMOL/L (21-32); Estimated Glom Filtration Rate 4 ML/MIN; Glucose 94 MG/DL (74-106); Osmolality,Calculated 299.5 MOS/KG (273-304); Potassium 4.4 MMOL/L (3.5-5.1); Sodium 139 MMOL/L (136-145); Total Protein 5.2 G/DL (6.4-8.2)
[2021-11-18] MEDS ORDERED: SODIUM CHLORIDE 0.9% 250 ML IV SCH (08:00)
[2021-11-18] MEDS: carvediloL 3.125 MG TABLET PO SCH ×2 (10:19→16:20)
[2021-11-18] MEDS: ASPIRIN EC 81 MG TABLET PO SCH (10:19)
[2021-11-18] MEDS: FUROSEMIDE 20 MG TABLET PO SCH (10:20)
[2021-11-18] MEDS: PANTOPRAZOLE 40 MG TABLET PO SCH (10:20)
[2021-11-18] MEDS: MAGNESIUM CHLORIDE 64 MG TABLET PO SCH (10:20)
[2021-11-18] MEDS: amLODIPine 5 MG TABLET PO SCH (10:20)
[2021-11-18] MEDS ORDERED: HEPARIN 10,000 UNIT/10 ML VIAL IV SCH (11:15)
[2021-11-18 12:19] LABS: Hepatitis B Core IgM Quant 0.22 Index; Hepatitis B Surface Ag Quant < 0.10 Index; Hepatitis B Surface Ag Result Non-Reactive (NonReactive); Hepatitis C Virus Ab Quant 0.05 Index; Hepatitis C Virus Ab Result Non-Reactive (NonReactive)
[2021-11-18] MEDS ORDERED: cefTRIAXone 1,000 MG in SODIUM CHLORIDE 0.9% 100 ML IV SCH (13:30)
[2021-11-18] MEDS: ACETAMINOPHEN 325 MG TABLET PO PRN (13:35)
[2021-11-18] MEDS: cefTRIAXone 1,000 MG in SODIUM CHLORIDE 0.9% 100 ML IV SCH (16:20)
[2021-11-19 06:57] LABS: Basophils % 0.2 % (0.0-0.8); Eosinophils # 1.1 10*3/uL (0.0-0.87); Eosinophils % 6.6 % (0.00-10.9); Immature Granulocytes % 0.6 %; Lymphocytes # 2.8 10*3/uL (1.4-4.0); Lymphocytes % 17.3 % (21.3-54.2); Mean Corpuscular Volume 90.3 FL (87-102); Monocytes % 12.3 % (1.7-12.7); NRBC # 0.03 10*3/uL; Platelet Count 190 T/CUMM (130-400); Red Blood Count 3.21 MC/CUMM (3.8-5.5); Red Cell Distribution Width 15.3 % (9.3-17.3); White Blood Count 16.1 T/CUMM (4-12)
[2021-11-19 07:17] LABS: Calcium 7.8 MG/DL (8.5-10.1); Potassium 3.9 MMOL/L (3.5-5.1)
[2021-11-19] MEDS: ASPIRIN EC 81 MG TABLET PO SCH (11:06)
[2021-11-19] MEDS: MAGNESIUM CHLORIDE 64 MG TABLET PO SCH (11:06)
[2021-11-19] MEDS: DOCUSATE SODIUM 100 MG CAPSULE PO SCH ×2 (11:06→22:50)
[2021-11-19] MEDS: PANTOPRAZOLE 40 MG TABLET PO SCH (11:06)
[2021-11-19] MEDS: FUROSEMIDE 20 MG TABLET PO SCH (11:06)
[2021-11-19] MEDS: amLODIPine 5 MG TABLET PO SCH (11:06)
[2021-11-19] MEDS: SACUBITRIL/VALSARTAN 49-51 MG TABLET PO SCH ×2 (11:11→22:50)
[2021-11-19] MEDS: carvediloL 3.125 MG TABLET PO SCH ×2 (11:12→16:52)
[2021-11-19] MEDS: cefTRIAXone 1,000 MG in SODIUM CHLORIDE 0.9% 100 ML IV SCH (16:51)
[2021-11-19] MEDS: ONDANSETRON 4 MG/2 ML VIAL IV PRN (17:15)
[2021-11-19] MEDS: ROSUVASTATIN 20 MG TABLET PO SCH (22:50)
[2021-11-19] MEDS: ASCORBIC ACID 500 MG TABLET PO SCH (22:50)
[2021-11-20 06:35] LABS: Basophils # 0.1 10*3/uL (0.0-0.2); Basophils % 0.3 % (0.0-0.8); Eosinophils # 0.9 10*3/uL (0.0-0.87); Eosinophils % 5.9 % (0.00-10.9); Hematocrit 29.8 VOL% (35.7-47.0); Hemoglobin 9.2 GM/DL (12.0-16.0); Immature Granulocytes % 0.5 %; Immature Granulocytes Absolute 0.07 #; Lymphocytes # 3.1 10*3/uL (1.4-4.0); Lymphocytes % 21.5 % (21.3-54.2); Mean Corpuscular HGB Conc 30.9 GM/DL (32-36); Mean Corpuscular Volume 91.1 FL (87-102); Mean Platelet Volume 12.8 FL (9.6-12.0); Monocytes % 12.2 % (1.7-12.7); NRBC # 0.02 10*3/uL; Neutrophils % 59.6 % (38.7-73.9); Platelet Count 168 T/CUMM (130-400); Red Blood Count 3.27 MC/CUMM (3.8-5.5); Red Cell Distribution Width 15.1 % (9.3-17.3); White Blood Count 14.5 T/CUMM (4-12)
[2021-11-20 06:55] LABS: Calcium 7.7 MG/DL (8.5-10.1); Potassium 3.5 MMOL/L (3.5-5.1)
[2021-11-20] MEDS: SACUBITRIL/VALSARTAN 49-51 MG TABLET PO SCH ×2 (09:55→21:49)
[2021-11-20] MEDS: DOCUSATE SODIUM 100 MG CAPSULE PO SCH ×2 (09:56→22:01)
[2021-11-20] MEDS: carvediloL 3.125 MG TABLET PO SCH ×2 (09:56→18:12)
[2021-11-20] MEDS: MAGNESIUM CHLORIDE 64 MG TABLET PO SCH (09:56)
[2021-11-20] MEDS: FUROSEMIDE 20 MG TABLET PO SCH (09:56)
[2021-11-20] MEDS: ASPIRIN EC 81 MG TABLET PO SCH (09:56)
[2021-11-20] MEDS: PANTOPRAZOLE 40 MG TABLET PO SCH (09:56)
[2021-11-20] MEDS: amLODIPine 5 MG TABLET PO SCH (09:56)
[2021-11-20] MEDS: ASCORBIC ACID 500 MG TABLET PO SCH ×2 (09:56→21:49)
[2021-11-20] MEDS ORDERED: MAGNESIUM SULF RIDER 2 GM/50 ML PREMIX IV ONE (11:44)
[2021-11-20] MEDS ORDERED: POTASSIUM CHLORIDE 20 MEQ TABLET PO ONE (11:44)
[2021-11-20] MEDS ORDERED: KETAMINE 500 MG/10 ML VIAL ONE (15:47)
[2021-11-20] MEDS ORDERED: fentaNYL 100 MCG/2 ML VIAL ONE (15:47)
[2021-11-20] MEDS ORDERED: BUPIVACAINE MPF 0.25% 30 ML VIAL ONE (16:12)
[2021-11-20] MEDS ORDERED: LIDOCAINE 1%/EPI INJ 20 ML VIAL ONE (16:12)
[2021-11-20] MEDS ORDERED: METOCLOPRAMIDE 10 MG/2 ML VIAL IV ONE (17:10)
[2021-11-20] MEDS ORDERED: METOCLOPRAMIDE 10 MG/2 ML VIAL ONE (17:10)
[2021-11-20] MEDS: cefTRIAXone 1,000 MG in SODIUM CHLORIDE 0.9% 100 ML IV SCH (21:48)
[2021-11-20] MEDS: ROSUVASTATIN 20 MG TABLET PO SCH (21:49)
[2021-11-21 06:06] LABS: Basophils # 0.1 10*3/uL (0.0-0.2); Basophils % 0.4 % (0.0-0.8); Eosinophils # 0.7 10*3/uL (0.0-0.87); Eosinophils % 4.8 % (0.00-10.9); Hematocrit 32.2 VOL% (35.7-47.0); Immature Granulocytes % 0.4 %; Immature Granulocytes Absolute 0.06 #; Lymphocytes # 2.6 10*3/uL (1.4-4.0); Lymphocytes % 18.3 % (21.3-54.2); Mean Corpuscular HGB Conc 31.1 GM/DL (32-36); Monocytes % 12.2 % (1.7-12.7); NRBC # 0.02 10*3/uL; Neutrophils % 63.9 % (38.7-73.9); Platelet Count 199 T/CUMM (130-400); Red Cell Distribution Width 14.9 % (9.3-17.3); White Blood Count 14.1 T/CUMM (4-12)
[2021-11-21 06:37] LABS: Calcium 7.7 MG/DL (8.5-10.1); Osmolality,Calculated 273.8 MOS/KG (273-304); Potassium 3.8 MMOL/L (3.5-5.1)
[2021-11-21] MEDS: amLODIPine 5 MG TABLET PO SCH (10:20)
[2021-11-21] MEDS: MAGNESIUM CHLORIDE 64 MG TABLET PO SCH (10:20)
[2021-11-21] MEDS: FUROSEMIDE 20 MG TABLET PO SCH (10:20)
[2021-11-21] MEDS: SACUBITRIL/VALSARTAN 49-51 MG TABLET PO SCH ×2 (10:21→22:08)
[2021-11-21] MEDS: PANTOPRAZOLE 40 MG TABLET PO SCH (10:21)
[2021-11-21] MEDS: ASPIRIN EC 81 MG TABLET PO SCH (10:21)
[2021-11-21] MEDS: ASCORBIC ACID 500 MG TABLET PO SCH ×2 (10:21→22:07)
[2021-11-21] MEDS: carvediloL 3.125 MG TABLET PO SCH ×2 (10:21→17:42)
[2021-11-21] MEDS: DOCUSATE SODIUM 100 MG CAPSULE PO SCH ×2 (10:22→22:07)
[2021-11-21] MEDS: ACETAMINOPHEN 325 MG TABLET PO PRN (22:08)
[2021-11-21] MEDS: ROSUVASTATIN 20 MG TABLET PO SCH (22:08)
[2021-11-21] MEDS: cefTRIAXone 1,000 MG in SODIUM CHLORIDE 0.9% 100 ML IV SCH (22:49)
[2021-11-22 06:57] LABS: Basophils # 0.1 10*3/uL (0.0-0.2); Basophils % 0.5 % (0.0-0.8); Eosinophils # 1.3 10*3/uL (0.0-0.87); Eosinophils % 7.9 % (0.00-10.9); Hematocrit 29.5 VOL% (35.7-47.0); Hemoglobin 9.2 GM/DL (12.0-16.0); Immature Granulocytes % 0.4 %; Immature Granulocytes Absolute 0.07 #; Lymphocytes # 3.8 10*3/uL (1.4-4.0); Lymphocytes % 23.5 % (21.3-54.2); Mean Corpuscular HGB Conc 31.2 GM/DL (32-36); Mean Platelet Volume 13.1 FL (9.6-12.0); Monocytes % 13.2 % (1.7-12.7); NRBC # 0.02 10*3/uL; Neutrophils % 54.5 % (38.7-73.9); Platelet Count 229 T/CUMM (130-400); Red Blood Count 3.24 MC/CUMM (3.8-5.5); Red Cell Distribution Width 14.9 % (9.3-17.3); White Blood Count 16.1 T/CUMM (4-12)
[2021-11-22 07:14] LABS: Calcium 7.8 MG/DL (8.5-10.1); Osmolality,Calculated 275.8 MOS/KG (273-304); Potassium 3.7 MMOL/L (3.5-5.1)
[2021-11-22] MEDS: ONDANSETRON 4 MG/2 ML VIAL IV PRN (08:03)
[2021-11-22] MEDS: SACUBITRIL/VALSARTAN 49-51 MG TABLET PO SCH ×2 (09:42→21:37)
[2021-11-22] MEDS: MAGNESIUM CHLORIDE 64 MG TABLET PO SCH (09:43)
[2021-11-22] MEDS: PANTOPRAZOLE 40 MG TABLET PO SCH (09:43)
[2021-11-22] MEDS: carvediloL 3.125 MG TABLET PO SCH ×2 (09:43→17:00)
[2021-11-22] MEDS: amLODIPine 5 MG TABLET PO SCH (09:43)
[2021-11-22] MEDS: ASPIRIN EC 81 MG TABLET PO SCH (09:43)
[2021-11-22] MEDS: ASCORBIC ACID 500 MG TABLET PO SCH ×2 (09:43→21:37)
[2021-11-22] MEDS: DOCUSATE SODIUM 100 MG CAPSULE PO SCH ×2 (09:44→21:37)
[2021-11-22] MEDS: FUROSEMIDE 20 MG TABLET PO SCH (09:44)
[2021-11-22] MEDS: ROSUVASTATIN 20 MG TABLET PO SCH (21:37)
[2021-11-22] MEDS: cefTRIAXone 1,000 MG in SODIUM CHLORIDE 0.9% 100 ML IV SCH (21:37)
[2021-11-23] MEDS: ONDANSETRON 4 MG/2 ML VIAL IV PRN (04:36)
[2021-11-23] MEDS: ACETAMINOPHEN 325 MG TABLET PO PRN ×2 (04:36→20:45)
[2021-11-23 05:37] LABS: Basophils # 0.1 10*3/uL (0.0-0.2); Basophils % 0.4 % (0.0-0.8); Eosinophils # 1.3 10*3/uL (0.0-0.87); Hematocrit 33.3 VOL% (35.7-47.0); Hemoglobin 10.4 GM/DL (12.0-16.0); Immature Granulocytes % 0.5 %; Immature Granulocytes Absolute 0.08 #; Lymphocytes # 3.3 10*3/uL (1.4-4.0); Lymphocytes % 19.5 % (21.3-54.2); Mean Corpuscular HGB Conc 31.2 GM/DL (32-36); Mean Corpuscular Volume 90.2 FL (87-102); Mean Platelet Volume 12.3 FL (9.6-12.0); Monocytes % 13.3 % (1.7-12.7); Neutrophils % 58.3 % (38.7-73.9); Platelet Count 251 T/CUMM (130-400); Red Blood Count 3.69 MC/CUMM (3.8-5.5); Red Cell Distribution Width 14.6 % (9.3-17.3); White Blood Count 16.7 T/CUMM (4-12)
[2021-11-23 06:17] LABS: Calcium 8.1 MG/DL (8.5-10.1); Osmolality,Calculated 269.1 MOS/KG (273-304); Potassium 4.2 MMOL/L (3.5-5.1)
[2021-11-23] MEDS: ASPIRIN EC 81 MG TABLET PO SCH (09:54)
[2021-11-23] MEDS: carvediloL 3.125 MG TABLET PO SCH ×2 (09:54→17:30)
[2021-11-23] MEDS: ASCORBIC ACID 500 MG TABLET PO SCH ×2 (09:54→20:45)
[2021-11-23] MEDS: SACUBITRIL/VALSARTAN 49-51 MG TABLET PO SCH ×2 (09:54→20:47)
[2021-11-23] MEDS: amLODIPine 5 MG TABLET PO SCH (09:54)
[2021-11-23] MEDS: PANTOPRAZOLE 40 MG TABLET PO SCH (09:54)
[2021-11-23] MEDS: MAGNESIUM CHLORIDE 64 MG TABLET PO SCH (09:54)
[2021-11-23] MEDS: DOCUSATE SODIUM 100 MG CAPSULE PO SCH ×2 (09:55→20:45)
[2021-11-23] MEDS: FUROSEMIDE 20 MG TABLET PO SCH (09:55)
[2021-11-23] MEDS: ROSUVASTATIN 20 MG TABLET PO SCH (20:45)
[2021-11-23] MEDS: cefTRIAXone 1,000 MG in SODIUM CHLORIDE 0.9% 100 ML IV SCH (20:45)
[2021-11-24 05:01] LABS: Basophils # 0.1 10*3/uL (0.0-0.2); Basophils % 0.5 % (0.0-0.8); Eosinophils # 1.3 10*3/uL (0.0-0.87); Eosinophils % 7.9 % (0.00-10.9); Hematocrit 30.8 VOL% (35.7-47.0); Hemoglobin 9.5 GM/DL (12.0-16.0); Immature Granulocytes % 0.4 %; Immature Granulocytes Absolute 0.06 #; Lymphocytes # 3.8 10*3/uL (1.4-4.0); Lymphocytes % 22.2 % (21.3-54.2); Mean Corpuscular HGB Conc 30.8 GM/DL (32-36); Mean Corpuscular Volume 90.9 FL (87-102); Mean Platelet Volume 12.2 FL (9.6-12.0); Monocytes % 13.5 % (1.7-12.7); Neutrophils % 55.5 % (38.7-73.9); Platelet Count 269 T/CUMM (130-400); Red Blood Count 3.39 MC/CUMM (3.8-5.5); Red Cell Distribution Width 14.7 % (9.3-17.3); White Blood Count 16.9 T/CUMM (4-12)
[2021-11-24 05:26] LABS: Calcium 7.6 MG/DL (8.5-10.1); Osmolality,Calculated 275.8 MOS/KG (273-304); Potassium 3.9 MMOL/L (3.5-5.1)
[2021-11-24] MEDS: SACUBITRIL/VALSARTAN 49-51 MG TABLET PO SCH ×2 (08:53→21:21)
[2021-11-24] MEDS: DOCUSATE SODIUM 100 MG CAPSULE PO SCH ×2 (08:54→21:21)
[2021-11-24] MEDS: MAGNESIUM CHLORIDE 64 MG TABLET PO SCH (08:54)
[2021-11-24] MEDS: FUROSEMIDE 20 MG TABLET PO SCH (08:54)
[2021-11-24] MEDS: PANTOPRAZOLE 40 MG TABLET PO SCH (08:54)
[2021-11-24] MEDS: carvediloL 3.125 MG TABLET PO SCH ×2 (08:54→16:19)
[2021-11-24] MEDS: ASCORBIC ACID 500 MG TABLET PO SCH ×2 (08:54→21:21)
[2021-11-24] MEDS: amLODIPine 5 MG TABLET PO SCH (08:54)
[2021-11-24] MEDS: ASPIRIN EC 81 MG TABLET PO SCH (08:55)
[2021-11-24] MEDS: ONDANSETRON 4 MG/2 ML VIAL IV PRN (16:24)
[2021-11-24] MEDS: ROSUVASTATIN 20 MG TABLET PO SCH (21:21)
[2021-11-24] MEDS: cefTRIAXone 1,000 MG in SODIUM CHLORIDE 0.9% 100 ML IV SCH (21:22)
[2021-11-25] MEDS ORDERED: ZALEPLON 5 MG CAPSULE PO PRN (01:03)
[2021-11-25] MEDS: ONDANSETRON 4 MG/2 ML VIAL IV PRN (07:51)
[2021-11-25] MEDS: PANTOPRAZOLE 40 MG TABLET PO SCH (08:57)
[2021-11-25] MEDS: ASPIRIN EC 81 MG TABLET PO SCH (08:57)
[2021-11-25] MEDS: carvediloL 3.125 MG TABLET PO SCH ×2 (08:57→17:07)
[2021-11-25] MEDS: DOCUSATE SODIUM 100 MG CAPSULE PO SCH ×2 (08:57→22:04)
[2021-11-25] MEDS: ASCORBIC ACID 500 MG TABLET PO SCH ×2 (08:57→22:04)
[2021-11-25] MEDS: FUROSEMIDE 20 MG TABLET PO SCH (08:58)
[2021-11-25] MEDS: MAGNESIUM CHLORIDE 64 MG TABLET PO SCH (14:06)
[2021-11-25] MEDS: amLODIPine 5 MG TABLET PO SCH (14:07)
[2021-11-25] MEDS: SACUBITRIL/VALSARTAN 49-51 MG TABLET PO SCH ×2 (14:07→22:03)
[2021-11-25] MEDS: ROSUVASTATIN 20 MG TABLET PO SCH (22:03)
[2021-11-25] MEDS: cefTRIAXone 1,000 MG in SODIUM CHLORIDE 0.9% 100 ML IV SCH (22:04)
[2021-11-26 05:26] LABS: Basophils # 0.1 10*3/uL (0.0-0.2); Basophils % 0.5 % (0.0-0.8); Eosinophils # 1.2 10*3/uL (0.0-0.87); Eosinophils % 8.7 % (0.00-10.9); Hematocrit 28.8 VOL% (35.7-47.0); Immature Granulocytes % 0.4 %; Immature Granulocytes Absolute 0.06 #; Lymphocytes % 28.1 % (21.3-54.2); Mean Corpuscular HGB Conc 31.3 GM/DL (32-36); Mean Corpuscular Volume 89.4 FL (87-102); Monocytes % 13.7 % (1.7-12.7); Neutrophils % 48.6 % (38.7-73.9); Platelet Count 294 T/CUMM (130-400); Red Blood Count 3.22 MC/CUMM (3.8-5.5); Red Cell Distribution Width 14.6 % (9.3-17.3); White Blood Count 14.3 T/CUMM (4-12)
[2021-11-26 05:50] LABS: Calcium 7.6 MG/DL (8.5-10.1); Osmolality,Calculated 274.7 MOS/KG (273-304)
[2021-11-26] MEDS: ASCORBIC ACID 500 MG TABLET PO SCH (09:34)
[2021-11-26] MEDS: ASPIRIN EC 81 MG TABLET PO SCH (09:34)
[2021-11-26] MEDS: amLODIPine 5 MG TABLET PO SCH (09:34)
[2021-11-26] MEDS: FUROSEMIDE 20 MG TABLET PO SCH (09:34)
[2021-11-26] MEDS: MAGNESIUM CHLORIDE 64 MG TABLET PO SCH (09:34)
[2021-11-26] MEDS: carvediloL 3.125 MG TABLET PO SCH (09:35)
[2021-11-26] MEDS: DOCUSATE SODIUM 100 MG CAPSULE PO SCH (09:35)
[2021-11-26] MEDS: PANTOPRAZOLE 40 MG TABLET PO SCH (09:35)
[2021-11-26] MEDS: SACUBITRIL/VALSARTAN 49-51 MG TABLET PO SCH (09:37)
[2021-11-26 16:27] VITALS: BP 123/74
== END 2021-11-26 15:15 | disposition swing bed (61) | DRG 673 ==
LOC: N.ED 07:25 → INTOOBSV 13:12 → N.EDINP 13:12 → N.TELES 18:53
PROVIDERS: ADMIT Family Medicine; ATTEND Family Medicine
PROC: IRTHORA (2021-11-17 10:45)
PROC: IRGDHTC (2021-11-17 13:30)

== ENCOUNTER 2021-12-14 13:54 | Inpatient (IN) ==
[2021-12-14 14:35] LABS: Basophils # 0.1 10*3/uL (0.0-0.2); Basophils % 0.3 % (0.0-0.8); Eosinophils # 0.1 10*3/uL (0.0-0.87); Eosinophils % 0.8 % (0.00-10.9); Hematocrit 25.6 VOL% (35.7-47.0); Immature Granulocytes % 0.4 %; Immature Granulocytes Absolute 0.06 #; Lymphocytes # 3.9 10*3/uL (1.4-4.0); Lymphocytes % 26.3 % (21.3-54.2); Mean Corpuscular HGB Conc 31.3 GM/DL (32-36); Mean Corpuscular Volume 89.2 FL (87-102); Mean Platelet Volume 11.1 FL (9.6-12.0); Monocytes % 9.5 % (1.7-12.7); NRBC # 0.07 10*3/uL; Neutrophils % 62.7 % (38.7-73.9); Platelet Count 299 T/CUMM (130-400); Red Blood Count 2.87 MC/CUMM (3.8-5.5); Red Cell Distribution Width 15.9 % (9.3-17.3); White Blood Count 14.7 T/CUMM (4-12)
[2021-12-14 14:57] LABS: INR 1.1; PT Patient Result 11.7 SECS (10.5-12.0); Partial Thromboplastin Time 26.8 SECS (23.8-32.1)
[2021-12-14 15:15] LABS: Band Neutrophils 1 % (0-10); Eosinophils 1 % (0-10); Lymphocytes 11 % (20-55); Segmented Neutrophils 59 % (50-85); Total Cells Counted 100
[2021-12-14 15:16] LABS: Burr Cells Few; Giant Platelets Many; Hypochromia 3+
[2021-12-14 15:17] LABS: Platelet Estimate Adequate
[2021-12-14 15:48] LABS: Alanine Aminotransferase 18 U/L (13-56); Albumin 2.4 G/DL (3.4-5.0); Alkaline Phosphatase 80 U/L (45-117); Aspartate Amino Transferase 24 U/L (0-37); Bilirubin,Total < 0.39 MG/DL (0.20-1.00); Blood Urea Nitrogen 18 MG/DL (7-18); Calcium 8.7 MG/DL (8.5-10.1); Carbon Dioxide 32 MMOL/L (21-32); Estimated Glom Filtration Rate 9 ML/MIN; Glucose 121 MG/DL (74-106); Osmolality,Calculated 275.8 MOS/KG (273-304); Potassium 2.7 MMOL/L (3.5-5.1); Sodium 137 MMOL/L (136-145); Total Protein 6.2 G/DL (6.4-8.2)
[2021-12-14] MEDS ORDERED: POTASSIUM CHLORIDE 20 MEQ TABLET PO STA (15:54)
[2021-12-14] MEDS ORDERED: ACETAMINOPHEN 325 MG TABLET PO PRN (15:55)
[2021-12-14] MEDS ORDERED: NITROGLYCERIN SL 0.4 MG TABLET SL PRN (19:04)
[2021-12-14] MEDS: DOCUSATE SODIUM 100 MG CAPSULE PO SCH ×2 (21:19→21:31)
[2021-12-14] MEDS: SACUBITRIL/VALSARTAN 49-51 MG TABLET PO SCH (21:31)
[2021-12-14] MEDS: ASCORBIC ACID 500 MG TABLET PO SCH (21:31)
[2021-12-15 04:29] LABS: Basophils # 0.1 10*3/uL (0.0-0.2); Basophils % 0.3 % (0.0-0.8); Eosinophils # 0.2 10*3/uL (0.0-0.87); Eosinophils % 1.1 % (0.00-10.9); Hematocrit 26.6 VOL% (35.7-47.0); Hemoglobin 8.1 GM/DL (12.0-16.0); Immature Granulocytes % 0.6 %; Lymphocytes % 18.1 % (21.3-54.2); Mean Corpuscular HGB Conc 30.5 GM/DL (32-36); Mean Corpuscular Volume 90.5 FL (87-102); Mean Platelet Volume 11.8 FL (9.6-12.0); Monocytes % 9.8 % (1.7-12.7); NRBC # 0.11 10*3/uL; Neutrophils % 70.1 % (38.7-73.9); Platelet Count 283 T/CUMM (130-400); Red Blood Count 2.94 MC/CUMM (3.8-5.5); Red Cell Distribution Width 16.3 % (9.3-17.3); White Blood Count 16.8 T/CUMM (4-12)
[2021-12-15 04:55] LABS: Alanine Aminotransferase 21 U/L (13-56); Albumin 2.4 G/DL (3.4-5.0); Alkaline Phosphatase 90 U/L (45-117); Aspartate Amino Transferase 32 U/L (0-37); Bilirubin,Total < 0.39 MG/DL (0.20-1.00); Blood Urea Nitrogen 21 MG/DL (7-18); Calcium 8.6 MG/DL (8.5-10.1); Carbon Dioxide 31 MMOL/L (21-32); Estimated Glom Filtration Rate 8 ML/MIN; Glucose 106 MG/DL (74-106); Osmolality,Calculated 281.4 MOS/KG (273-304); Potassium 3.4 MMOL/L (3.5-5.1); Sodium 140 MMOL/L (136-145); Total Protein 6.6 G/DL (6.4-8.2)
[2021-12-15] MEDS: ASPIRIN EC 81 MG TABLET PO SCH (08:51)
[2021-12-15] MEDS: DOCUSATE SODIUM 100 MG CAPSULE PO SCH ×3 (09:03→21:56)
[2021-12-15] MEDS: SACUBITRIL/VALSARTAN 49-51 MG TABLET PO SCH ×2 (10:13→21:55)
[2021-12-15] MEDS: amLODIPine 5 MG TABLET PO SCH (10:13)
[2021-12-15] MEDS: ROSUVASTATIN 20 MG TABLET PO SCH (10:13)
[2021-12-15] MEDS: FUROSEMIDE 20 MG TABLET PO SCH (10:13)
[2021-12-15] MEDS: MAGNESIUM CHLORIDE 64 MG TABLET PO SCH (10:13)
[2021-12-15] MEDS: carBAMazepine 200 MG TABLET PO SCH (10:13)
[2021-12-15] MEDS: ASCORBIC ACID 500 MG TABLET PO SCH ×2 (10:14→21:56)
[2021-12-15] MEDS: carvediloL 3.125 MG TABLET PO SCH ×2 (10:14→21:56)
[2021-12-15] MEDS: PANTOPRAZOLE 40 MG TABLET PO SCH (10:14)
[2021-12-15] MEDS ORDERED: HEPARIN 10,000 UNIT/10 ML VIAL IV SCH (20:30)
[2021-12-16 03:36] LABS: Basophils % 0.3 % (0.0-0.8); Eosinophils # 0.2 10*3/uL (0.0-0.87); Eosinophils % 1.3 % (0.00-10.9); Hematocrit 25.4 VOL% (35.7-47.0); Hemoglobin 7.7 GM/DL (12.0-16.0); Immature Granulocytes % 0.5 %; Immature Granulocytes Absolute 0.06 #; Lymphocytes # 3.5 10*3/uL (1.4-4.0); Lymphocytes % 27.6 % (21.3-54.2); Mean Corpuscular HGB Conc 30.3 GM/DL (32-36); Mean Platelet Volume 12.1 FL (9.6-12.0); Monocytes % 9.8 % (1.7-12.7); NRBC # 0.09 10*3/uL; Neutrophils % 60.5 % (38.7-73.9); Platelet Count 251 T/CUMM (130-400); Red Blood Count 2.79 MC/CUMM (3.8-5.5); Red Cell Distribution Width 16.4 % (9.3-17.3); White Blood Count 12.7 T/CUMM (4-12)
[2021-12-16] MEDS ORDERED: LIDOCAINE 1%/EPI INJ 20 ML VIAL ONE ×2 (10:52→10:53)
[2021-12-16] MEDS ORDERED: propofoL 200 MG/20 ML VIAL IV ONE (11:22)
[2021-12-16] MEDS ORDERED: LIDOCAINE 2% 5 ML VIAL ONE (11:22)
[2021-12-16] MEDS ORDERED: fentaNYL 100 MCG/2 ML VIAL ONE (11:24)
[2021-12-16] MEDS ORDERED: DOXYCYCLINE HYCLATE INJ 200 MG, LIDOCAINE 1% INJ 20 ML in STERILE WATER INJ 30 ML INTRAPLEUR ONE (11:45)
[2021-12-16] MEDS ORDERED: PHENYLEPHRINE 1 MG/10 ML SYRINGE IV ONE (11:52)
[2021-12-16] MEDS ORDERED: SODIUM CHLORIDE 0.9% 1,000 ML IV ONE (11:52)
[2021-12-16] MEDS: amLODIPine 5 MG TABLET PO SCH (12:53)
[2021-12-16] MEDS: ROSUVASTATIN 20 MG TABLET PO SCH (12:53)
[2021-12-16] MEDS: ASPIRIN EC 81 MG TABLET PO SCH (12:53)
[2021-12-16] MEDS: SACUBITRIL/VALSARTAN 49-51 MG TABLET PO SCH ×2 (12:53→20:47)
[2021-12-16] MEDS: DOCUSATE SODIUM 100 MG CAPSULE PO SCH ×2 (12:53→20:47)
[2021-12-16] MEDS: FUROSEMIDE 20 MG TABLET PO SCH (12:53)
[2021-12-16] MEDS: carvediloL 3.125 MG TABLET PO SCH ×2 (12:53→17:32)
[2021-12-16] MEDS: ASCORBIC ACID 500 MG TABLET PO SCH ×2 (12:54→20:47)
[2021-12-16] MEDS: carBAMazepine 200 MG TABLET PO SCH (12:54)
[2021-12-16] MEDS: PANTOPRAZOLE 40 MG TABLET PO SCH (12:54)
[2021-12-16] MEDS: MAGNESIUM CHLORIDE 64 MG TABLET PO SCH (12:54)
[2021-12-16] MEDS ORDERED: MORPHINE 2 MG/1 ML SYRINGE IV PRN (18:44)
[2021-12-17 05:29] LABS: Basophils # 0.1 10*3/uL (0.0-0.2); Basophils % 0.3 % (0.0-0.8); Eosinophils # 0.9 10*3/uL (0.0-0.87); Eosinophils % 5.5 % (0.00-10.9); Hematocrit 24.8 VOL% (35.7-47.0); Hemoglobin 7.6 GM/DL (12.0-16.0); Immature Granulocytes % 0.5 %; Immature Granulocytes Absolute 0.08 #; Lymphocytes # 4.8 10*3/uL (1.4-4.0); Lymphocytes % 30.5 % (21.3-54.2); Mean Corpuscular HGB Conc 30.6 GM/DL (32-36); Mean Corpuscular Volume 91.9 FL (87-102); Mean Platelet Volume 12.2 FL (9.6-12.0); Monocytes % 11.6 % (1.7-12.7); NRBC # 0.22 10*3/uL; Neutrophils % 51.6 % (38.7-73.9); Platelet Count 223 T/CUMM (130-400); Red Cell Distribution Width 17.3 % (9.3-17.3); White Blood Count 15.6 T/CUMM (4-12)
[2021-12-17 07:23] LABS: Calcium 8.1 MG/DL (8.5-10.1); Osmolality,Calculated 278.7 MOS/KG (273-304); Potassium 3.2 MMOL/L (3.5-5.1)
[2021-12-17] MEDS: ROSUVASTATIN 20 MG TABLET PO SCH (10:04)
[2021-12-17] MEDS: MAGNESIUM CHLORIDE 64 MG TABLET PO SCH (10:04)
[2021-12-17] MEDS: SACUBITRIL/VALSARTAN 49-51 MG TABLET PO SCH ×2 (10:04→20:48)
[2021-12-17] MEDS: PANTOPRAZOLE 40 MG TABLET PO SCH (10:04)
[2021-12-17] MEDS: ASPIRIN EC 81 MG TABLET PO SCH (10:05)
[2021-12-17] MEDS: DOCUSATE SODIUM 100 MG CAPSULE PO SCH ×2 (10:05→20:39)
[2021-12-17] MEDS: carvediloL 3.125 MG TABLET PO SCH ×2 (10:05→18:33)
[2021-12-17] MEDS: FUROSEMIDE 20 MG TABLET PO SCH (10:05)
[2021-12-17] MEDS: carBAMazepine 200 MG TABLET PO SCH (10:05)
[2021-12-17] MEDS: ASCORBIC ACID 500 MG TABLET PO SCH ×2 (10:05→20:39)
[2021-12-17] MEDS: amLODIPine 5 MG TABLET PO SCH (10:06)
[2021-12-17 16:19] LABS: Hepatitis B Surface Ag Quant < 0.10 Index; Hepatitis B Surface Ag Result Non-Reactive (NonReactive)
[2021-12-17] MEDS: ONDANSETRON 4 MG/2 ML VIAL IV PRN (20:39)
[2021-12-18] MEDS: PANTOPRAZOLE 40 MG TABLET PO SCH (09:10)
[2021-12-18] MEDS: FUROSEMIDE 20 MG TABLET PO SCH (09:10)
[2021-12-18] MEDS: ASPIRIN EC 81 MG TABLET PO SCH (09:10)
[2021-12-18] MEDS: MAGNESIUM CHLORIDE 64 MG TABLET PO SCH (09:10)
[2021-12-18] MEDS: ROSUVASTATIN 20 MG TABLET PO SCH (09:10)
[2021-12-18] MEDS: ASCORBIC ACID 500 MG TABLET PO SCH ×2 (09:10→21:06)
[2021-12-18] MEDS: DOCUSATE SODIUM 100 MG CAPSULE PO SCH ×2 (09:11→21:05)
[2021-12-18] MEDS: carBAMazepine 200 MG TABLET PO SCH (09:21)
[2021-12-18] MEDS: SACUBITRIL/VALSARTAN 49-51 MG TABLET PO SCH ×2 (10:13→21:05)
[2021-12-18] MEDS: carvediloL 3.125 MG TABLET PO SCH ×2 (10:13→19:13)
[2021-12-18] MEDS: amLODIPine 5 MG TABLET PO SCH (10:14)
[2021-12-19 05:11] LABS: Basophils # 0.1 10*3/uL (0.0-0.2); Basophils % 0.3 % (0.0-0.8); Eosinophils # 1.9 10*3/uL (0.0-0.87); Hematocrit 25.9 VOL% (35.7-47.0); Hemoglobin 7.7 GM/DL (12.0-16.0); Immature Granulocytes % 0.5 %; Immature Granulocytes Absolute 0.08 #; Lymphocytes # 4.7 10*3/uL (1.4-4.0); Lymphocytes % 29.4 % (21.3-54.2); Mean Corpuscular HGB Conc 29.7 GM/DL (32-36); Mean Corpuscular Volume 92.8 FL (87-102); Mean Platelet Volume 12.1 FL (9.6-12.0); Monocytes % 12.8 % (1.7-12.7); NRBC # 0.49 10*3/uL; Platelet Count 204 T/CUMM (130-400); Red Blood Count 2.79 MC/CUMM (3.8-5.5); Red Cell Distribution Width 17.5 % (9.3-17.3); White Blood Count 16.1 T/CUMM (4-12)
[2021-12-19 05:27] LABS: Calcium 7.8 MG/DL (8.5-10.1); Osmolality,Calculated 270.2 MOS/KG (273-304); Potassium 3.8 MMOL/L (3.5-5.1)
[2021-12-19 06:10] LABS: Eosinophils 15 % (0-10); Hypochromia 1+; Lymphocytes 30 % (20-55); Nucleated Red Blood Cells 2 (0-5); Segmented Neutrophils 42 % (50-85); Total Cells Counted 100
[2021-12-19 06:11] LABS: Anisocytosis 1+; Microcytosis 1+; Polychromasia Slight; Target Cells Slight
[2021-12-19] MEDS: carBAMazepine 200 MG TABLET PO SCH (13:56)
[2021-12-19] MEDS: DOCUSATE SODIUM 100 MG CAPSULE PO SCH ×2 (13:57→21:24)
[2021-12-19] MEDS: ROSUVASTATIN 20 MG TABLET PO SCH (13:57)
[2021-12-19] MEDS: MAGNESIUM CHLORIDE 64 MG TABLET PO SCH (13:57)
[2021-12-19] MEDS: SACUBITRIL/VALSARTAN 49-51 MG TABLET PO SCH ×2 (13:57→21:24)
[2021-12-19] MEDS: FUROSEMIDE 20 MG TABLET PO SCH (13:57)
[2021-12-19] MEDS: PANTOPRAZOLE 40 MG TABLET PO SCH (13:57)
[2021-12-19] MEDS: ASPIRIN EC 81 MG TABLET PO SCH (13:57)
[2021-12-19] MEDS: carvediloL 3.125 MG TABLET PO SCH ×2 (13:57→18:27)
[2021-12-19] MEDS: ASCORBIC ACID 500 MG TABLET PO SCH ×2 (13:58→21:24)
[2021-12-20] MEDS: ONDANSETRON 4 MG/2 ML VIAL IV PRN (06:13)
[2021-12-20] MEDS: carBAMazepine 200 MG TABLET PO SCH (09:53)
[2021-12-20] MEDS: ROSUVASTATIN 20 MG TABLET PO SCH (09:54)
[2021-12-20] MEDS: PANTOPRAZOLE 40 MG TABLET PO SCH (09:54)
[2021-12-20] MEDS: ASCORBIC ACID 500 MG TABLET PO SCH ×2 (09:54→20:36)
[2021-12-20] MEDS: SACUBITRIL/VALSARTAN 49-51 MG TABLET PO SCH ×2 (09:55→20:36)
[2021-12-20] MEDS: DOCUSATE SODIUM 100 MG CAPSULE PO SCH ×2 (09:55→20:36)
[2021-12-20] MEDS: ASPIRIN EC 81 MG TABLET PO SCH (09:55)
[2021-12-20] MEDS: FUROSEMIDE 20 MG TABLET PO SCH (09:56)
[2021-12-20] MEDS: carvediloL 3.125 MG TABLET PO SCH ×2 (09:56→18:24)
[2021-12-20] MEDS: MAGNESIUM CHLORIDE 64 MG TABLET PO SCH (10:56)
[2021-12-20] MEDS: amLODIPine 5 MG TABLET PO SCH (10:57)
[2021-12-20] MEDS ORDERED: EPOETIN ALFA-EPBX 3,000 UNIT/ML VIAL IV PRN (15:25)
[2021-12-21 05:19] LABS: Basophils # 0.1 10*3/uL (0.0-0.2); Basophils % 0.4 % (0.0-0.8); Eosinophils # 1.6 10*3/uL (0.0-0.87); Eosinophils % 9.8 % (0.00-10.9); Hematocrit 26.1 VOL% (35.7-47.0); Hemoglobin 7.8 GM/DL (12.0-16.0); Immature Granulocytes % 0.6 %; Immature Granulocytes Absolute 0.09 #; Lymphocytes # 4.9 10*3/uL (1.4-4.0); Lymphocytes % 30.8 % (21.3-54.2); Mean Corpuscular HGB Conc 29.9 GM/DL (32-36); Mean Corpuscular Volume 91.3 FL (87-102); Mean Platelet Volume 12.2 FL (9.6-12.0); Monocytes % 12.5 % (1.7-12.7); NRBC # 0.18 10*3/uL; Neutrophils % 45.9 % (38.7-73.9); Platelet Count 208 T/CUMM (130-400); Red Blood Count 2.86 MC/CUMM (3.8-5.5); Red Cell Distribution Width 16.8 % (9.3-17.3); White Blood Count 15.9 T/CUMM (4-12)
[2021-12-21 05:31] LABS: Osmolality,Calculated 267.5 MOS/KG (273-304); Potassium 4.5 MMOL/L (3.5-5.1)
[2021-12-21] MEDS ORDERED: DOXYCYCLINE HYCLATE INJ 200 MG, LIDOCAINE 1% INJ 20 ML in STERILE WATER INJ 30 ML INTRAPLEUR ONE (08:00)
[2021-12-21] MEDS: PANTOPRAZOLE 40 MG TABLET PO SCH (09:59)
[2021-12-21] MEDS: amLODIPine 5 MG TABLET PO SCH (09:59)
[2021-12-21] MEDS: ASPIRIN EC 81 MG TABLET PO SCH (10:00)
[2021-12-21] MEDS: FUROSEMIDE 20 MG TABLET PO SCH (10:00)
[2021-12-21] MEDS: DOCUSATE SODIUM 100 MG CAPSULE PO SCH ×2 (10:00→20:39)
[2021-12-21] MEDS: carvediloL 3.125 MG TABLET PO SCH ×2 (10:01→17:27)
[2021-12-21] MEDS: ASCORBIC ACID 500 MG TABLET PO SCH ×2 (10:02→20:38)
[2021-12-21] MEDS: MAGNESIUM CHLORIDE 64 MG TABLET PO SCH (10:02)
[2021-12-21] MEDS: ROSUVASTATIN 20 MG TABLET PO SCH (10:02)
[2021-12-21] MEDS: SACUBITRIL/VALSARTAN 49-51 MG TABLET PO SCH ×2 (10:03→20:38)
[2021-12-21] MEDS: carBAMazepine 200 MG TABLET PO SCH (10:03)
[2021-12-22] MEDS ORDERED: SODIUM CHLORIDE 0.9% 250 ML IV ONE (03:21)
[2021-12-22] MEDS: ONDANSETRON 4 MG/2 ML VIAL IV PRN (07:33)
[2021-12-22] MEDS: SACUBITRIL/VALSARTAN 49-51 MG TABLET PO SCH ×2 (09:17→21:30)
[2021-12-22] MEDS: carBAMazepine 200 MG TABLET PO SCH (09:17)
[2021-12-22] MEDS: PANTOPRAZOLE 40 MG TABLET PO SCH (09:18)
[2021-12-22] MEDS: ASPIRIN EC 81 MG TABLET PO SCH (09:18)
[2021-12-22] MEDS: carvediloL 3.125 MG TABLET PO SCH ×2 (09:18→16:54)
[2021-12-22] MEDS: ASCORBIC ACID 500 MG TABLET PO SCH ×2 (09:18→21:30)
[2021-12-22] MEDS: MAGNESIUM CHLORIDE 64 MG TABLET PO SCH (09:18)
[2021-12-22] MEDS: ROSUVASTATIN 20 MG TABLET PO SCH (09:18)
[2021-12-22] MEDS: amLODIPine 5 MG TABLET PO SCH (09:18)
[2021-12-22] MEDS: DOCUSATE SODIUM 100 MG CAPSULE PO SCH ×2 (09:18→21:30)
[2021-12-22] MEDS: FUROSEMIDE 20 MG TABLET PO SCH (09:19)
[2021-12-22] MEDS ORDERED: PROMETHAZINE 25 MG/1 ML VIAL IM PRN (10:14)
[2021-12-23 07:51] LABS: Basophils # 0.1 10*3/uL (0.0-0.2); Basophils % 0.6 % (0.0-0.8); Eosinophils # 0.7 10*3/uL (0.0-0.87); Eosinophils % 4.9 % (0.00-10.9); Hematocrit 26.9 VOL% (35.7-47.0); Immature Granulocytes % 0.5 %; Immature Granulocytes Absolute 0.07 #; Lymphocytes # 5.2 10*3/uL (1.4-4.0); Lymphocytes % 36.8 % (21.3-54.2); Mean Corpuscular HGB Conc 29.7 GM/DL (32-36); Mean Corpuscular Volume 90.3 FL (87-102); Mean Platelet Volume 11.9 FL (9.6-12.0); Monocytes % 15.6 % (1.7-12.7); NRBC # 0.02 10*3/uL; Neutrophils % 41.6 % (38.7-73.9); Platelet Count 218 T/CUMM (130-400); Red Blood Count 2.98 MC/CUMM (3.8-5.5); Red Cell Distribution Width 16.4 % (9.3-17.3)
[2021-12-23 08:05] LABS: Calcium 8.1 MG/DL (8.5-10.1); Osmolality,Calculated 267.4 MOS/KG (273-304); Potassium 5.1 MMOL/L (3.5-5.1)
[2021-12-23 08:14] LABS: Lymphocytes 28 % (20-55); Segmented Neutrophils 61 % (50-85); Total Cells Counted 100
[2021-12-23 08:15] LABS: Hypochromia 1+; Microcytosis 1+; Platelet Estimate Adequate
[2021-12-23] MEDS: SACUBITRIL/VALSARTAN 49-51 MG TABLET PO SCH ×3 (10:30→20:20)
[2021-12-23] MEDS: MAGNESIUM CHLORIDE 64 MG TABLET PO SCH ×2 (11:06→17:22)
[2021-12-23] MEDS: amLODIPine 5 MG TABLET PO SCH ×2 (11:07→17:28)
[2021-12-23] MEDS: PANTOPRAZOLE 40 MG TABLET PO SCH (11:07)
[2021-12-23] MEDS: carvediloL 3.125 MG TABLET PO SCH ×2 (11:07→17:21)
[2021-12-23] MEDS: ASPIRIN EC 81 MG TABLET PO SCH (11:08)
[2021-12-23] MEDS: FUROSEMIDE 20 MG TABLET PO SCH (11:08)
[2021-12-23] MEDS: carBAMazepine 200 MG TABLET PO SCH (11:08)
[2021-12-23] MEDS: ROSUVASTATIN 20 MG TABLET PO SCH (11:08)
[2021-12-23] MEDS: DOCUSATE SODIUM 100 MG CAPSULE PO SCH ×3 (11:08→20:20)
[2021-12-23] MEDS: ASCORBIC ACID 500 MG TABLET PO SCH ×3 (11:08→20:20)
[2021-12-23] MEDS: ONDANSETRON 4 MG/2 ML VIAL IV PRN (12:48)
[2021-12-23] MEDS ORDERED: MORPHINE 4 MG/1 ML VIAL IV PRN (12:52)
[2021-12-24 08:45] VITALS: BP 114/37
[2021-12-24] MEDS: ASCORBIC ACID 500 MG TABLET PO SCH (09:12)
[2021-12-24] MEDS: carBAMazepine 200 MG TABLET PO SCH (09:12)
[2021-12-24] MEDS: amLODIPine 5 MG TABLET PO SCH (09:12)
[2021-12-24] MEDS: SACUBITRIL/VALSARTAN 49-51 MG TABLET PO SCH (09:12)
[2021-12-24] MEDS: ASPIRIN EC 81 MG TABLET PO SCH (09:13)
[2021-12-24] MEDS: FUROSEMIDE 20 MG TABLET PO SCH (09:13)
[2021-12-24] MEDS: MAGNESIUM CHLORIDE 64 MG TABLET PO SCH (09:13)
[2021-12-24] MEDS: carvediloL 3.125 MG TABLET PO SCH (09:13)
[2021-12-24] MEDS: PANTOPRAZOLE 40 MG TABLET PO SCH (09:13)
[2021-12-24] MEDS: ROSUVASTATIN 20 MG TABLET PO SCH (09:13)
[2021-12-24] MEDS: DOCUSATE SODIUM 100 MG CAPSULE PO SCH (09:13)
== END 2021-12-24 15:15 | disposition home health service (06) | DRG 291 ==
LOC: N.ED 13:54 → N.EDINP 15:55 → N.TELEN 12-15 03:17
PROVIDERS: ADMIT Family Medicine; ATTEND Family Medicine

== ENCOUNTER 2022-06-09 20:18 | Inpatient (IN) ==
[2022-06-09] MEDS ORDERED: LACTATED RINGERS 250 ML IV ONE (20:58)
[2022-06-09 21:08] LABS: Basophils % 0.3 % (0.0-0.8); Eosinophils % 0.1 % (0.00-10.9); Hemoglobin 16.7 GM/DL (12.0-16.0); Immature Granulocytes % 0.3 %; Immature Granulocytes Absolute 0.04 #; Lymphocytes # 3.4 10*3/uL (1.4-4.0); Lymphocytes % 28.9 % (21.3-54.2); Mean Corpuscular HGB Conc 32.7 GM/DL (32-36); Mean Corpuscular Volume 95.5 FL (87-102); Monocytes # 0.8 10*3/uL (0.11-0.8); Monocytes % 6.7 % (1.7-12.7); NRBC # 0.07 10*3/uL; Neutrophils % 63.7 % (38.7-73.9); Platelet Count 77 T/CUMM (130-400); Red Blood Count 5.34 MC/CUMM (3.8-5.5); Red Cell Distribution Width 20.7 % (9.3-17.3); White Blood Count 11.9 T/CUMM (4-12)
[2022-06-09 21:21] LABS: Alanine Aminotransferase 87 U/L (13-56); Albumin 2.3 G/DL (3.4-5.0); Alkaline Phosphatase 481 U/L (45-117); Aspartate Amino Transferase 271 U/L (0-37); Blood Urea Nitrogen 21 MG/DL (7-18); CKMB % 15.61 %; Carbon Dioxide 26 MMOL/L (21-32); Chloride 100 MMOL/L (98-107); Glucose 91 MG/DL (74-106); Osmolality,Calculated 279.5 MOS/KG (273-304); Potassium 3.7 MMOL/L (3.5-5.1); Sodium 139 MMOL/L (136-145)
[2022-06-09 21:34] LABS: Platelet Estimate Decreased
[2022-06-09 21:35] LABS: Tear Drop Cells Slight
[2022-06-09] MEDS ORDERED: PIPERACILLIN/TAZOBACTAM 3,375 MG in SODIUM CHLORIDE 0.9% 100 ML IV STA (21:47)
[2022-06-09] MEDS ORDERED: MEPERIDINE 25 MG/1 ML VIAL IV STA (22:35)
[2022-06-09] MEDS ORDERED: LOPERAMIDE 2 MG CAPSULE PO PRN (23:05)
[2022-06-09] MEDS ORDERED: ONDANSETRON 4 MG/2 ML VIAL IV PRN (23:05)
[2022-06-09] MEDS ORDERED: MEPERIDINE 25 MG/1 ML VIAL IV PRN (23:05)
[2022-06-09] MEDS ORDERED: traMADol 50 MG TABLET PO PRN (23:05)
[2022-06-09] MEDS ORDERED: ACETAMINOPHEN 325 MG TABLET PO PRN ×2 (23:05→23:08)
[2022-06-09] MEDS: SODIUM CHLORIDE 0.9% 1,000 ML IV SCH (23:55)
[2022-06-10] MEDS: SODIUM CHLORIDE 0.9% 1,000 ML IV SCH (04:15)
[2022-06-10] MEDS ORDERED: SEVELAMER CARBONATE POWDER 2.4 GM PACK PO SCH (08:00)
[2022-06-10] MEDS ORDERED: PANTOPRAZOLE 40 MG VIAL IV SCH (09:00)
[2022-06-10] MEDS ORDERED: DOCUSATE SODIUM 100 MG CAPSULE PO SCH (09:00)
[2022-06-10] MEDS ORDERED: MIDODRINE 5 MG TABLET PO SCH (09:00)
[2022-06-10] MEDS ORDERED: MEPERIDINE 25 MG/1 ML VIAL IV PRN (10:12)
[2022-06-10] MEDS ORDERED: MORPHINE 2 MG/1 ML SYRINGE IV PRN (10:21)
[2022-06-10 20:36] VITALS: BP 51/41
== END 2022-06-11 02:41 | disposition expired | DRG 951 ==
LOC: EDUNIT# → EDBD → N.ED 20:18 → N.3E 22:39
PROVIDERS: ADMIT Family Medicine; ATTEND Family Medicine